=== PATIENT | male | born 1960 | race Hispanic/Latino ===

== ENCOUNTER 2018-04-13 10:15 | Observation (INO) | payer MEDICARE ==
[~2018-04-13] VITALS: Ht 149.9 cm; Wt 72.7 kg
[~2018-04-13 10:15] MED LIST: AEC81 PO; CHOL200013 PO; DOCU-116 PO; NAPR-1023 PO; PRAV20TA4 PO
[2018-04-15 11:20] LABS: BASOPHILS % (AUTO) 0.8 % (0.0-5.0); EOSINOPHILS % (AUTO) 1.2 % (0.0-8.0); HEMATOCRIT 44.2 % (42-54); LYMPHOCYTES % (AUTO) 18.3 % (21.0-51.0); MEAN CORPUSCULAR HEMOGLOBIN 32.1 pg (27.0-33.0); MEAN CORPUSCULAR HGB CONC 33.7 g/dL (32.0-36.0); MEAN CORPUSCULAR VOLUME 95.3 fL (79-99); MONOCYTES % (AUTO) 8.1 % (3.0-13.0); NEUTROPHILS % (AUTO) 71.6 % (40.0-77.0); NUCLEATED RED BLOOD CELLS 0.1 % (0.0-0.19); PLATELET COUNT (AUTO) 224 K/uL (130-400); RED BLOOD CELL COUNT(AUTO) 4.64 MIL/uL (4.50-6.20); RED CELL DISTRIBUTION WIDTH 14.2 % (11.0-15.5); WHITE BLOOD COUNT (AUTO) 8.6 K/uL (4.8-10.8)
[2018-04-15 11:21] VITALS: BP 163/58
[2018-04-15 11:45] LABS: CREATININE 1.1 mg/dL (0.5-1.5); POTASSIUM 5.2 mmol/L (3.5-5.1)
[2018-04-15 11:50] LABS: APPEARANCE,URINE Clear (CLEAR); BILIRUBIN,URINE Negative (NEGATIVE); COLOR,URINE Yellow (YELLOW); GLUCOSE, URINE (UA) Negative (NEGATIVE); KETONES,URINE Negative (NEGATIVE); LEUKOCYTE ESTERASE ,URINE Small (NEGATIVE); NITRATE,URINE Negative (NEGATIVE); OCCULT BLOOD,URINE Negative (NEGATIVE); PROTEIN,URINE Negative (NEGATIVE); UROBILINOGEN,URINE 0.2 mg/dL (0.2-1.0)
[2018-04-15 12:17] LABS: BACTERIA,URINE Rare /HPF (None Seen); SQUAMOUS EPITHELIAL CELL,UR Rare /HPF (0-2)
[2018-04-15 12:18] LABS: MUCUS,URINE Rare LPF (None Seen); RBC,URINE 0-1 /HPF (0-1)
[2018-04-16] MEDS ORDERED: LACHLOT TP (10:01)
[2018-04-16] MEDS ORDERED: LOSA50TA25 PO (10:01)
[2018-04-16] MEDS ORDERED: NIZO215C TP (10:01)
[2018-04-20] VITALS (20 sets, daily range): BP systolic 113–169; BP diastolic 34–82
[2018-04-20] MEDS: CEFTRIAXONE SODIUM 1 GM IVP SCH ×2 (06:00→07:55)
[2018-04-20] MEDS ORDERED: LACTATED RINGERS 1000ML 1,000 ML IV ONE (06:26)
[2018-04-20] MEDS ORDERED: HYDROMORPHONE 1 MG/1 ML AMP ONE (07:17)
[2018-04-20] MEDS ORDERED: SUCCINYLCHOLINE CHLORIDE 20 MG/ML 10 ML VIAL ONE (07:20)
[2018-04-20] MEDS ORDERED: ROCURONIUM BROMIDE 10MG/1ML 5ML VL ONE (07:20)
[2018-04-20] MEDS ORDERED: LIDOCAINE PF 2% 5ML ABBOJECT ONE (07:20)
[2018-04-20] MEDS ORDERED: FENTANYL CITRATE PF 50 MCG/1 ML 2ML VIAL ONE (07:21)
[2018-04-20] MEDS ORDERED: PROPOFOL 10 MG/ML 20ML VIAL IV ONE (07:21)
[2018-04-20] MEDS ORDERED: METOCLOPRAMIDE 10 MG/2 ML VIAL ONE (07:22)
[2018-04-20] MEDS ORDERED: ONDANSETRON HCL 4 MG/2 ML VIAL ONE (07:22)
[2018-04-20] MEDS ORDERED: GLYCOPYRROLATE 1 MG/5 ML SYRINGE ONE (08:03)
[2018-04-20] MEDS ORDERED: EPHEDRINE SULFATE 50 MG/ML AMPULE ONE (08:10)
[2018-04-20] MEDS ORDERED: NEOSTIGMINE 5MG/5ML SYR IV ONE (08:11)
[2018-04-20] MEDS ORDERED: NALOXONE HCL 0.4 MG/1 ML ML ONE (08:17)
== END 2018-04-20 12:15 | disposition home or self-care (01) ==
LOC: DAHIP 04-20 06:00 → EDSTATUS 04-20 10:15
PROVIDERS: ADMIT Surgery; ATTEND Surgery
DX: N40.1 Benign prostatic hyperplasia with lower urinary tract symptoms (principal); I10 Essential (primary) hypertension; N35.819 Other urethral stricture, male, unspecified site; N32.3 Diverticulum of bladder; N32.89 Other specified disorders of bladder; Z87.440 Personal history of urinary (tract) infections
CPT/HCPCS: 36415; 52281; 80048; 81001; 85025; 87088; A4218; A4354; A4358; G0378 ×7; J0330; J0696; J1170; J2001; J2310; J2405; J2704; J2710; J3010; J3490 ×3; J7120; J2765

== ENCOUNTER → 2019-10-15 | Outpatient (CLI) | payer MEDICARE ==
[~2019-10-15] MED LIST changes: -AEC81 PO; +LACHLOT TP; +LOSA50TA64 PO; -NAPR-1023 PO; +NIZO215C TP
== END | disposition home or self-care (01) ==
LOC: SHCH 09:07
PROVIDERS: ATTEND Internal Medicine Cardiovascular Disease
DX: I49.5 Sick sinus syndrome (principal); R55 Syncope and collapse
CPT/HCPCS: 93306

== ENCOUNTER 2020-03-07 12:41 | Emergency (ER) | payer MEDICARE ==
[2020-03-07 13:05] LABS: BASOPHILS % (AUTO) 0.6 % (0.0-5.0); EOSINOPHILS % (AUTO) 0.8 % (0.0-8.0); HEMATOCRIT 43.7 % (42-54); LYMPHOCYTES % (AUTO) 22.4 % (21.0-51.0); MEAN CORPUSCULAR HEMOGLOBIN 31.8 pg (27.0-33.0); MEAN CORPUSCULAR HGB CONC 33.6 g/dL (32.0-36.0); MEAN CORPUSCULAR VOLUME 94.6 fL (79-99); MONOCYTES % (AUTO) 4.7 % (3.0-13.0); NEUTROPHILS % (AUTO) 71.2 % (40.0-77.0); PLATELET COUNT (AUTO) 208 K/uL (130-400); RED BLOOD CELL COUNT(AUTO) 4.62 MIL/uL (4.50-6.20); RED CELL DISTRIBUTION WIDTH 14.2 % (11.0-15.5); WHITE BLOOD COUNT (AUTO) 8.6 K/uL (4.8-10.8)
[2020-03-07 13:20] LABS: INR 0.98 (0.85-1.15); PARTIAL THROMBOPLASTIN TIME 24.2 SEC (26.3-35.5); PROTHROMBIN TIME 10.6 SEC (9.6-11.6)
[2020-03-07 13:25] LABS: ALBUMIN 3.6 g/dL (3.5-5.0); BILIRUBIN,TOTAL 0.6 mg/dL (0.2-1.0); CREATININE 1.2 mg/dL (0.5-1.5); POTASSIUM 4.5 mmol/L (3.5-5.1); TOTAL PROTEIN, SERUM 7.9 g/dL (6.0-8.3)
[2020-03-07 14:17] LABS: APPEARANCE,URINE Clear (CLEAR); BILIRUBIN,URINE Negative (NEGATIVE); COLOR,URINE Yellow (YELLOW); GLUCOSE, URINE (UA) Negative (NEGATIVE); KETONES,URINE Trace mg/dL (NEGATIVE); LEUKOCYTE ESTERASE ,URINE Moderate (NEGATIVE); NITRATE,URINE Negative (NEGATIVE); OCCULT BLOOD,URINE Negative (NEGATIVE); PH,URINE 6.5 (5.0-8.0); PROTEIN,URINE Negative (NEGATIVE); UROBILINOGEN,URINE 0.2 mg/dL (0.2-1.0)
[2020-03-07 14:31] LABS: BACTERIA,URINE Rare /HPF (None Seen); RBC,URINE 0-1 /HPF (0-1); SQUAMOUS EPITHELIAL CELL,UR Rare /HPF (0-2); WBC,URINE 26-50 /HPF (0-1)
[2020-03-07] MEDS ORDERED: SODIUM CHLORIDE 0.9% 100 ML IV ONE (15:48)
[2020-03-07] MEDS ORDERED: CEFTRIAXONE SODIUM 1 GM ONE (15:48)
== END 2020-03-07 16:42 | disposition home or self-care (01) ==
LOC: EDH 12:41
DX: N39.0 Urinary tract infection, site not specified (principal); R55 Syncope and collapse
CPT/HCPCS: 36415; 70450; 71045; 80053; 81001; 82550; 84484; 85025; 85610; 85730; 87088; 93005; 96374; 99285; J0696

== ENCOUNTER 2020-04-19 11:13 | Emergency (ER) | payer MEDICARE ==
[2020-04-19 12:02] LABS: BASOPHILS % (AUTO) 0.6 % (0.0-5.0); EOSINOPHILS % (AUTO) 0.9 % (0.0-8.0); HEMATOCRIT 42.7 % (42-54); LYMPHOCYTES % (AUTO) 11.8 % (21.0-51.0); MEAN CORPUSCULAR HEMOGLOBIN 31.3 pg (27.0-33.0); MEAN CORPUSCULAR VOLUME 94.9 fL (79-99); MONOCYTES % (AUTO) 7.1 % (3.0-13.0); NEUTROPHILS % (AUTO) 79.3 % (40.0-77.0); PLATELET COUNT (AUTO) 184 K/uL (130-400); RED CELL DISTRIBUTION WIDTH 14.6 % (11.0-15.5); WHITE BLOOD COUNT (AUTO) 8.8 K/uL (4.8-10.8)
[2020-04-19 12:24] LABS: CREATININE 1.2 mg/dL (0.5-1.5)
[2020-04-19 12:28] LABS: APPEARANCE,URINE TURBID (CLEAR); BILIRUBIN,URINE NEGATIVE (NEGATIVE); COLOR,URINE YELLOW (YELLOW); GLUCOSE, URINE (UA) NEGATIVE (NEGATIVE); KETONES,URINE NEGATIVE (NEGATIVE); LEUKOCYTE ESTERASE ,URINE LARGE (NEGATIVE); NITRATE,URINE NEGATIVE (NEGATIVE); OCCULT BLOOD,URINE TRACE-INTACT (NEGATIVE); PH,URINE 6.5 (5.0-8.0); PROTEIN,URINE NEGATIVE (NEGATIVE); UROBILINOGEN,URINE 0.2 mg/dL (0.2-1.0)
[2020-04-19 12:29] LABS: ALBUMIN 3.6 g/dL (3.5-5.0); BILIRUBIN,TOTAL 0.3 mg/dL (0.2-1.0); TOTAL PROTEIN, SERUM 7.7 g/dL (6.0-8.3)
[2020-04-19 12:41] LABS: AMORPHOUS SEDIMENT,UR Moderate /LPF (None Seen); BACTERIA,URINE Rare /HPF (None Seen); RBC,URINE 0-1 /HPF (0-1); SQUAMOUS EPITHELIAL CELL,UR Rare /HPF (0-2); WBC,URINE >100 /HPF (0-1)
[2020-04-19] MEDS ORDERED: SODIUM CHLORIDE 0.9% 50 ML IV ONE (13:19)
[2020-04-19] MEDS ORDERED: CEFTRIAXONE SODIUM 1 GM ONE (13:19)
== END 2020-04-19 16:17 | disposition home or self-care (01) ==
LOC: EDH 11:13
DX: N39.0 Urinary tract infection, site not specified (principal); E86.0 Dehydration; R55 Syncope and collapse; Z20.828 Contact with and (suspected) exposure to other viral communicable diseases; I10 Essential (primary) hypertension; E78.5 Hyperlipidemia, unspecified
CPT/HCPCS: 36415; 80053; 81001; 84484; 85025; 87088; 87426; 87804 ×2; 93005; 96374; 99284; J0696; U0003

== ENCOUNTER 2020-12-20 07:38 | Emergency (ER) | payer MEDICARE ==
[~2020-12-20] VITALS: Ht 149.9 cm; Wt 68.0 kg
[2020-12-20 07:59] VITALS: BP 136/56
[2020-12-20 08:31] LABS: BASOPHILS % (AUTO) 0.5 % (0.0-5.0); EOSINOPHILS % (AUTO) 1.4 % (0.0-8.0); LYMPHOCYTES % (AUTO) 12.2 % (21.0-51.0); MEAN CORPUSCULAR HEMOGLOBIN 31.3 pg (27.0-33.0); MEAN CORPUSCULAR HGB CONC 32.8 g/dL (32.0-36.0); MEAN CORPUSCULAR VOLUME 95.5 fL (79-99); MONOCYTES % (AUTO) 6.2 % (3.0-13.0); NEUTROPHILS % (AUTO) 79.4 % (40.0-77.0); PLATELET COUNT (AUTO) 198 K/uL (130-400); RED BLOOD CELL COUNT(AUTO) 4.19 MIL/uL (4.50-6.20); RED CELL DISTRIBUTION WIDTH 14.8 % (11.0-15.5); WHITE BLOOD COUNT (AUTO) 9.3 K/uL (4.8-10.8)
[2020-12-20 08:59] LABS: ALANINE AMINOTRANSFERASE 27 U/L (12-78); ALBUMIN 3.3 g/dL (3.5-5.0); ASPARTATE AMINOTRANSFERASE 22 U/L (10-37); BILIRUBIN,TOTAL 0.5 mg/dL (0.2-1.0); CARBON DIOXIDE 31 mmol/L (21-32); CHLORIDE 105 mmol/L (101-111); CREATINE KINASE, TOTAL 39 U/L (21-232); CREATININE 1.2 mg/dL (0.5-1.5); GLOMERULAR FILTR. RATE CALC 65 mL/min (>60); GLUCOSE,RANDOM 124 mg/dL (70-105); MYOGLOBIN 92 ng/mL (10-92); POTASSIUM 3.8 mmol/L (3.5-5.1); SODIUM SERUM 142 mmol/L (136-145); TOTAL PROTEIN, SERUM 7.2 g/dL (6.0-8.3); TROPONIN I < 0.04 ng/mL (0.00-0.06); UREA NITROGEN, BLOOD 18 mg/dL (7-18)
[2020-12-20 10:01] LABS: APPEARANCE,URINE CLOUDY (CLEAR); BILIRUBIN,URINE NEGATIVE (NEGATIVE); COLOR,URINE YELLOW (YELLOW); GLUCOSE, URINE (UA) NEGATIVE (NEGATIVE); KETONES,URINE NEGATIVE (NEGATIVE); LEUKOCYTE ESTERASE ,URINE MODERATE (NEGATIVE); NITRATE,URINE NEGATIVE (NEGATIVE); OCCULT BLOOD,URINE LARGE (NEGATIVE); PH,URINE 6.5 (5.0-8.0); PROTEIN,URINE 100 mg/dL (NEGATIVE); UROBILINOGEN,URINE 0.2 mg/dL (0.2-1.0)
[2020-12-20 10:24] LABS: RBC,URINE >100 /HPF (0-1)
[2020-12-20 10:25] LABS: BACTERIA,URINE Rare /HPF (None Seen); SQUAMOUS EPITHELIAL CELL,UR Rare /HPF (0-2); WBC,URINE 51-100 /HPF (0-1)
[2020-12-20 12:06] VITALS: BP 176/86
[2020-12-20] MEDS ORDERED: CEFTRIAXONE 1G VIAL IVP SCH (12:15)
[2020-12-20] MEDS ORDERED: 0.9% NACL 50ML 50 ML IV ONE (12:29)
[2020-12-20] MEDS ORDERED: CEPH500B PO (13:06)
[2020-12-20 13:19] VITALS: BP 120/65
== END 2020-12-20 13:42 | disposition home or self-care (01) ==
LOC: EDH 07:38
DX: N39.0 Urinary tract infection, site not specified (principal); R55 Syncope and collapse; I10 Essential (primary) hypertension; Z79.899 Other long term (current) drug therapy
CPT/HCPCS: 36415; 74018; 80053; 81001; 82550; 83874; 84484; 85025; 87088; 93005; 96374; 99285; J0696

== ENCOUNTER 2022-01-22 16:42 | Inpatient (IN) | payer MEDICARE ==
[~2022-01-22] VITALS: Ht 160 cm; Wt 69.4 kg
[~2022-01-22 16:42] MED LIST changes: +AEC81 PO; +AMOX-429 PO; +CEPH500B PO; +CICL34.62 TP; +FINA5TAB41 PO; +FLUD0.1T2 PO; +LORA10TA7 PO; -LOSA50TA64 PO; +NYST100P2 MC; +POLY17PO52 PO; +PROP40TA7 PO; +TAMS-1 PO; +TRIA1KIT8 TP
[2022-01-22 18:15] LABS: BASOPHILS % (AUTO) 0.3 % (0.0-5.0); HEMATOCRIT 30.8 % (42-54); LYMPHOCYTES % (AUTO) 16.4 % (21.0-51.0); MEAN CORPUSCULAR HEMOGLOBIN 31.3 pg (27.0-33.0); MEAN CORPUSCULAR HGB CONC 33.4 g/dL (32.0-36.0); MEAN CORPUSCULAR VOLUME 93.6 fL (79-99); MONOCYTES % (AUTO) 10.8 % (3.0-13.0); NEUTROPHILS % (AUTO) 69.5 % (40.0-77.0); PLATELET COUNT (AUTO) 170 K/uL (130-400); RED BLOOD CELL COUNT(AUTO) 3.29 MIL/uL (4.50-6.20); RED CELL DISTRIBUTION WIDTH 14.5 % (11.0-15.5); WHITE BLOOD COUNT (AUTO) 9.5 K/uL (4.8-10.8)
[2022-01-22 18:26] LABS: POTASSIUM 3.5 mmol/L (3.5-5.1)
[2022-01-22 18:31] LABS: ALBUMIN 2.2 g/dL (3.5-5.0); TOTAL PROTEIN, SERUM 5.9 g/dL (6.0-8.3)
[2022-01-22] MEDS ORDERED: DOXY100C5 PO (18:46)
[2022-01-22] MEDS: ALBUTEROL INHALER 90MCG/INH IH SCH (19:00)
[2022-01-22] MEDS ORDERED: ONDANSETRON 4MG INJ IV PRN (19:00)
[2022-01-22] MEDS ORDERED: MORPHINE 2 MG SYG IV PRN (19:00)
[2022-01-22] MEDS ORDERED: ASPIRIN 81MG CHEW TAB PO ONE (19:00)
[2022-01-22] MEDS ORDERED: ACETAMINOPHEN 325 MG TAB PO PRN (19:00)
[2022-01-22] MEDS ORDERED: GUAIFENESIN-DM 200/20 MG 10 ML PO PRN (19:00)
[2022-01-22] MEDS ORDERED: MORPHINE 4 MG SYG IV PRN (19:00)
[2022-01-22] MEDS ORDERED: ERGOCALCIFEROL (VITAMIN D2) 50,000 UNIT CAPSULE PO ONE (19:00)
[2022-01-22] MEDS: DEXAMETHASONE SOD PHOSPHATE 4 MG/ML 1ML VIAL IV SCH (20:00)
[2022-01-22] MEDS: CEFTRIAXONE 1G VIAL IV SCH (20:00)
[2022-01-22] MEDS: DOXYCYCLINE 100MG+NS 250ML 250 ML IV SCH (20:00)
[2022-01-22] MEDS: NITROGLYCERIN 1GM OINT 1 INCH/1GM TD SCH (20:02)
[2022-01-22] MEDS ORDERED: KETO15CR2 TP (20:15)
[2022-01-22] MEDS ORDERED: VITAMIN D3 PO (20:15)
[2022-01-22] MEDS ORDERED: CICL34.62 TP (20:15)
[2022-01-22] MEDS ORDERED: PRAV20TA4 PO (20:15)
[2022-01-22] MEDS ORDERED: TAMS-1 PO (20:15)
[2022-01-22] MEDS ORDERED: AEC81 PO (20:15)
[2022-01-22] MEDS ORDERED: POLY17PO52 PO (20:15)
[2022-01-22] MEDS ORDERED: LORA10TA7 PO (20:15)
[2022-01-22] MEDS ORDERED: LACHLOT TP (20:15)
[2022-01-22] MEDS ORDERED: FLUD0.1T2 PO (20:15)
[2022-01-22] MEDS ORDERED: PROP60CA PO (20:15)
[2022-01-22] MEDS ORDERED: FINA5TAB41 PO (20:15)
[2022-01-22] MEDS ORDERED: TRIA15CR48 TP (20:15)
[2022-01-22] MEDS ORDERED: DOCU-116 PO (20:15)
[2022-01-22] MEDS: FAMOTIDINE 20MG VIAL IV SCH (21:32)
[2022-01-23] MEDS: ALBUTEROL INHALER 90MCG/INH IH SCH ×4 (01:00→19:00)
[2022-01-23] MEDS: TRAZODONE HCL 50 MG TAB PO SCH ×2 (01:09→22:10)
[2022-01-23] MEDS ORDERED: HYDROXYZINE 25 MG TABLET PO ONE (01:30)
[2022-01-23] MEDS: NITROGLYCERIN 1GM OINT 1 INCH/1GM TD SCH ×3 (02:52→19:00)
[2022-01-23 04:07] LABS: APPEARANCE,URINE CLEAR (CLEAR); BILIRUBIN,URINE NEGATIVE (NEGATIVE); COLOR,URINE YELLOW (YELLOW); GLUCOSE, URINE (UA) NEGATIVE (NEGATIVE); KETONES,URINE NEGATIVE (NEGATIVE); LEUKOCYTE ESTERASE ,URINE MODERATE (NEGATIVE); NITRATE,URINE NEGATIVE (NEGATIVE); OCCULT BLOOD,URINE LARGE (NEGATIVE); PH,URINE 5.5 (5.0-8.0); PROTEIN,URINE 30 mg/dL (NEGATIVE); UROBILINOGEN,URINE 0.2 mg/dL (0.2-1.0)
[2022-01-23 04:14] LABS: BACTERIA,URINE Moderate /HPF (None Seen); MUCUS,URINE Moderate LPF (None Seen); RBC,URINE TNTC /HPF (0-1); SQUAMOUS EPITHELIAL CELL,UR Few /HPF (0-2); WBC,URINE TNTC /HPF (0-1)
[2022-01-23 04:39] LABS: CREATININE 0.9 mg/dL (0.5-1.5); POTASSIUM 3.6 mmol/L (3.5-5.1)
[2022-01-23 04:47] LABS: MAGNESIUM 1.8 mg/dL (1.80-2.40)
[2022-01-23 05:58] LABS: BASOPHILS % (AUTO) 0.3 % (0.0-5.0); HEMATOCRIT 31.6 % (42-54); LYMPHOCYTES % (AUTO) 9.8 % (21.0-51.0); MEAN CORPUSCULAR HEMOGLOBIN 31.6 pg (27.0-33.0); MEAN CORPUSCULAR HGB CONC 33.9 g/dL (32.0-36.0); MEAN CORPUSCULAR VOLUME 93.2 fL (79-99); MONOCYTES % (AUTO) 1.5 % (3.0-13.0); NEUTROPHILS % (AUTO) 86.5 % (40.0-77.0); PLATELET COUNT (AUTO) 194 K/uL (130-400); RED BLOOD CELL COUNT(AUTO) 3.39 MIL/uL (4.50-6.20); RED CELL DISTRIBUTION WIDTH 14.2 % (11.0-15.5); WHITE BLOOD COUNT (AUTO) 7.9 K/uL (4.8-10.8)
[2022-01-23] MEDS: FAMOTIDINE 20MG VIAL IV SCH ×2 (08:16→20:25)
[2022-01-23] MEDS: DOXYCYCLINE 100MG+NS 250ML 250 ML IV SCH ×2 (08:16→20:24)
[2022-01-23] MEDS ORDERED: ASPIRIN 81MG CHEW TAB PO SCH (09:00)
[2022-01-23] MEDS: FLUDROCORTISONE ACETATE 0.1 MG TABLET PO SCH (09:34)
[2022-01-23] MEDS: ZINC SULFATE 220 CAPSULE PO SCH (09:34)
[2022-01-23] MEDS: AMMONIUM LACTATE 226GM LOTION TP SCH (09:34)
[2022-01-23] MEDS: FINASTERIDE 5 MG TABLET PO SCH (09:34)
[2022-01-23] MEDS: DOCUSATE SODIUM 100 MG CAP PO SCH ×2 (09:34→22:10)
[2022-01-23] MEDS: KETOCONAZOLE 15 GM CREAM.GM. TP SCH ×2 (09:34→21:00)
[2022-01-23] MEDS: POLYETHYLENE GLYCOL 3350 17 GM POWD.PACK PO SCH (09:34)
[2022-01-23] MEDS: ASPIRIN 81 MG EC TAB PO SCH (09:34)
[2022-01-23] MEDS: ASCORBIC ACID 500 MG TAB PO SCH (09:34)
[2022-01-23] MEDS: VITAMIN D3 2000 UNIT PO SCH (09:34)
[2022-01-23] MEDS: LORATADINE 10 MG TABLET PO SCH (09:34)
[2022-01-23] MEDS: TAMSULOSIN HCL 0.4 MG CAP.ER.24H PO SCH (09:34)
[2022-01-23] MEDS: [UNRECOGNIZED DRUG - OTHER] TP SCH (09:34)
[2022-01-23] MEDS: TRIAMCINOLONE 0.025% 15 GM CREAM TP SCH (09:35)
[2022-01-23] MEDS: ENOXAPARIN SODIUM 40 MG/0.4 ML SYRINGE SQ SCH (09:35)
[2022-01-23] MEDS: PROPRANOLOL HCL 20 MG TAB PO SCH (10:15)
[2022-01-23] MEDS: DEXAMETHASONE SOD PHOSPHATE 4 MG/ML 1ML VIAL IV SCH (20:24)
[2022-01-23] MEDS: CEFTRIAXONE 1G VIAL IV SCH (20:24)
[2022-01-23] MEDS ORDERED: SIMVASTATIN 20 MG TABLET PO SCH (21:00)
[2022-01-24] MEDS: ALBUTEROL INHALER 90MCG/INH IH SCH ×2 (01:00→06:54)
[2022-01-24] MEDS ORDERED: HYDROXYZINE 25 MG TABLET PO ONE (02:30)
[2022-01-24] MEDS: NITROGLYCERIN 1GM OINT 1 INCH/1GM TD SCH (02:42)
[2022-01-24 04:33] LABS: BASOPHILS % (AUTO) 0.2 % (0.0-5.0); HEMATOCRIT 34.2 % (42-54); MEAN CORPUSCULAR HGB CONC 33.9 g/dL (32.0-36.0); MEAN CORPUSCULAR VOLUME 94.2 fL (79-99); MONOCYTES % (AUTO) 1.6 % (3.0-13.0); NEUTROPHILS % (AUTO) 88.3 % (40.0-77.0); PLATELET COUNT (AUTO) 226 K/uL (130-400); RED BLOOD CELL COUNT(AUTO) 3.63 MIL/uL (4.50-6.20); RED CELL DISTRIBUTION WIDTH 14.4 % (11.0-15.5); WHITE BLOOD COUNT (AUTO) 11.4 K/uL (4.8-10.8)
[2022-01-24 05:02] LABS: % IRON SATURATION 33.6 % (30-44)
[2022-01-24 05:03] LABS: CREATININE 1.1 mg/dL (0.5-1.5); MAGNESIUM 1.8 mg/dL (1.80-2.40); PHOSPHORUS 3.3 mg/dL (2.5-4.9); POTASSIUM 3.9 mmol/L (3.5-5.1); THYROID STIMULATING HORMONE 0.86 uIU/mL (0.36-3.74)
[2022-01-24] MEDS: DOXYCYCLINE 100MG+NS 250ML 250 ML IV SCH (08:02)
[2022-01-24] MEDS ORDERED: DEXA6TAB PO (08:13)
[2022-01-24] MEDS ORDERED: GUAI5SYR PO (08:13)
[2022-01-24] MEDS ORDERED: CEFU500T67 PO (08:13)
[2022-01-24] MEDS: FAMOTIDINE 20MG VIAL IV SCH (08:47)
[2022-01-24] MEDS: FLUDROCORTISONE ACETATE 0.1 MG TABLET PO SCH (08:47)
[2022-01-24] MEDS: DOCUSATE SODIUM 100 MG CAP PO SCH (08:47)
[2022-01-24] MEDS: ASPIRIN 81 MG EC TAB PO SCH (08:47)
[2022-01-24] MEDS: TAMSULOSIN HCL 0.4 MG CAP.ER.24H PO SCH (08:47)
[2022-01-24] MEDS: FINASTERIDE 5 MG TABLET PO SCH (08:48)
[2022-01-24] MEDS: PROPRANOLOL HCL 20 MG TAB PO SCH (08:48)
[2022-01-24] MEDS: ASCORBIC ACID 500 MG TAB PO SCH (08:48)
[2022-01-24] MEDS: ZINC SULFATE 220 CAPSULE PO SCH (08:48)
[2022-01-24] MEDS: POLYETHYLENE GLYCOL 3350 17 GM POWD.PACK PO SCH (08:48)
[2022-01-24] MEDS: LORATADINE 10 MG TABLET PO SCH (08:48)
[2022-01-24] MEDS: AMMONIUM LACTATE 226GM LOTION TP SCH (08:50)
[2022-01-24] MEDS: TRIAMCINOLONE 0.025% 15 GM CREAM TP SCH (08:50)
[2022-01-24] MEDS: [UNRECOGNIZED DRUG - OTHER] TP SCH (08:52)
[2022-01-24] MEDS: VITAMIN D3 2000 UNIT PO SCH (08:52)
[2022-01-24] MEDS: ENOXAPARIN SODIUM 40 MG/0.4 ML SYRINGE SQ SCH (08:53)
[2022-01-24 09:51] VITALS: BP 147/89
== END 2022-01-24 09:48 | disposition home or self-care (01) | DRG 177 ==
LOC: EDH 16:42 → EDHIP 18:59
PROVIDERS: ADMIT Internal Medicine; ATTEND Internal Medicine
DX: U07.1 COVID-19 (principal); J12.82 Pneumonia due to coronavirus disease 2019; E44.0 Moderate protein-calorie malnutrition; N39.0 Urinary tract infection, site not specified; Z82.49 Family history of ischemic heart disease and other diseases of the circulatory system; I10 Essential (primary) hypertension; E78.5 Hyperlipidemia, unspecified; N40.0 Benign prostatic hyperplasia without lower urinary tract symptoms; Z79.899 Other long term (current) drug therapy; E78.00 Pure hypercholesterolemia, unspecified; K59.00 Constipation, unspecified; Z68.27 Body mass index [BMI] 27.0-27.9, adult; R77.8 Other specified abnormalities of plasma proteins; Q90.9 Down syndrome, unspecified
CPT/HCPCS: 36415; 71045; 80048; 80053; 81001; 82550; 82728; 82746; 83540; 83550; 83735; 83874; 84100; 84145; 84443; 84484; 85025; 85045; 87088; 87635; 93005; G0378; J0696; J1100; J1650; J3490

== ENCOUNTER 2022-01-25 08:43 | Inpatient (IN) | payer MEDICARE ==
[~2022-01-25] VITALS: Ht 149.9 cm; Wt 56.1 kg
[~2022-01-25 08:43] MED LIST changes: -AMOX-429 PO; +CEFU500T67 PO; -CEPH500B PO; -CHOL200013 PO; +DEXA6TAB PO; +DOXY100C5 PO; +GUAI5SYR PO; +KETO15CR2 TP; -NIZO215C TP; -NYST100P2 MC; -PROP40TA7 PO; +PROP60CA PO; +TRIA15CR48 TP; -TRIA1KIT8 TP; +VITAMIN D3 PO
[2022-01-25 09:51] LABS: BASOPHILS % (AUTO) 0.3 % (0.0-5.0); EOSINOPHILS % (AUTO) 0.7 % (0.0-8.0); HEMATOCRIT 33.1 % (42-54); MEAN CORPUSCULAR HEMOGLOBIN 31.6 pg (27.0-33.0); MEAN CORPUSCULAR HGB CONC 33.5 g/dL (32.0-36.0); MEAN CORPUSCULAR VOLUME 94.3 fL (79-99); MONOCYTES % (AUTO) 5.1 % (3.0-13.0); NEUTROPHILS % (AUTO) 85.4 % (40.0-77.0); PLATELET COUNT (AUTO) 226 K/uL (130-400); RED BLOOD CELL COUNT(AUTO) 3.51 MIL/uL (4.50-6.20); RED CELL DISTRIBUTION WIDTH 14.6 % (11.0-15.5); WHITE BLOOD COUNT (AUTO) 11.6 K/uL (4.8-10.8)
[2022-01-25 10:08] LABS: ALBUMIN 2.4 g/dL (3.5-5.0); CREATININE 1.1 mg/dL (0.5-1.5); POTASSIUM 3.5 mmol/L (3.5-5.1); TOTAL PROTEIN, SERUM 6.1 g/dL (6.0-8.3)
[2022-01-25 10:40] LABS: B-TYPE NATRIURETIC PEPTIDE 959 pg/mL (0-100)
[2022-01-25] MEDS ORDERED: FUROSEMIDE 40MG VIAL IV ONE (12:30)
[2022-01-25] MEDS ORDERED: ACETAMINOPHEN 325 MG TAB PO PRN ×2 (12:30)
[2022-01-25] MEDS ORDERED: ONDANSETRON 4MG INJ IV PRN (12:30)
[2022-01-25] MEDS ORDERED: FUROSEMIDE 20MG VIAL IV ONE (12:30)
[2022-01-25 16:40] VITALS: BP 149/56
[2022-01-25 20:00] VITALS: BP 164/72
[2022-01-25] MEDS: FUROSEMIDE 40MG VIAL IVP SCH (20:32)
[2022-01-25] MEDS: FAMOTIDINE 20MG TAB PO SCH (20:33)
[2022-01-25 23:58] VITALS: BP 136/65
[2022-01-26 04:00] VITALS: BP 128/59
[2022-01-26 08:00] VITALS: BP 129/59
[2022-01-26] MEDS: ENOXAPARIN SODIUM 40 MG/0.4 ML SYRINGE SQ SCH (08:46)
[2022-01-26] MEDS: FAMOTIDINE 20MG TAB PO SCH ×2 (08:48→21:45)
[2022-01-26] MEDS: FUROSEMIDE 40MG VIAL IVP SCH ×2 (08:48→21:46)
[2022-01-26 12:00] VITALS: BP 105/51
[2022-01-26] MEDS ORDERED: 0.9% NACL 250ML 250 ML ONE (15:45)
[2022-01-26] MEDS: DOXYCYCLINE 100MG+NS 250ML IV SCH (15:48)
[2022-01-26 16:00] VITALS: BP 131/57
[2022-01-26 20:00] VITALS: BP 110/55
[2022-01-26] MEDS: DOCUSATE SODIUM 100 MG CAP PO SCH (21:45)
[2022-01-26] MEDS: KETOCONAZOLE 15 GM CREAM.GM. TP SCH (21:46)
[2022-01-27] VITALS: BP 122/59
[2022-01-27] MEDS: DOXYCYCLINE 100MG+NS 250ML IV SCH ×2 (01:10→13:53)
[2022-01-27 04:00] VITALS: BP 139/63
[2022-01-27 04:45] LABS: BASOPHILS % (AUTO) 0.3 % (0.0-5.0); EOSINOPHILS % (AUTO) 0.9 % (0.0-8.0); HEMATOCRIT 32.7 % (42-54); LYMPHOCYTES % (AUTO) 26.7 % (21.0-51.0); MEAN CORPUSCULAR HEMOGLOBIN 31.6 pg (27.0-33.0); MEAN CORPUSCULAR HGB CONC 33.9 g/dL (32.0-36.0); MEAN CORPUSCULAR VOLUME 93.2 fL (79-99); MONOCYTES % (AUTO) 7.1 % (3.0-13.0); NEUTROPHILS % (AUTO) 63.1 % (40.0-77.0); PLATELET COUNT (AUTO) 250 K/uL (130-400); RED BLOOD CELL COUNT(AUTO) 3.51 MIL/uL (4.50-6.20); RED CELL DISTRIBUTION WIDTH 14.5 % (11.0-15.5); WHITE BLOOD COUNT (AUTO) 9.6 K/uL (4.8-10.8)
[2022-01-27 05:00] LABS: ALBUMIN 2.6 g/dL (3.5-5.0); CREATININE 0.9 mg/dL (0.5-1.5); POTASSIUM 3.1 mmol/L (3.5-5.1); TOTAL PROTEIN, SERUM 6.4 g/dL (6.0-8.3)
[2022-01-27] MEDS ORDERED: POTASSIUM CHLORIDE 20MEQ/100ML 100 ML IV PRN (07:00)
[2022-01-27] MEDS ORDERED: KCL 20 MEQ ERTAB PO PRN (07:00)
[2022-01-27] MEDS ORDERED: LIDOCAINE HCL-MPF 1% 2ML VIAL IV PRN (07:00)
[2022-01-27 08:00] VITALS: BP 111/51
[2022-01-27] MEDS: PROPRANOLOL HCL 60 MG PO SCH (09:00)
[2022-01-27] MEDS: VITAMIN D3 2000 UNIT PO SCH (09:00)
[2022-01-27] MEDS: [UNRECOGNIZED DRUG - OTHER] TP SCH (09:00)
[2022-01-27] MEDS: ENOXAPARIN SODIUM 40 MG/0.4 ML SYRINGE SQ SCH (10:15)
[2022-01-27] MEDS: FUROSEMIDE 40MG VIAL IVP SCH ×2 (10:15→20:30)
[2022-01-27] MEDS: FLUDROCORTISONE ACETATE 0.1 MG TABLET PO SCH (10:16)
[2022-01-27] MEDS: ASPIRIN 81 MG EC TAB PO SCH (10:16)
[2022-01-27] MEDS: ATORVASTATIN 10 MG TABLET PO SCH (10:16)
[2022-01-27] MEDS: TAMSULOSIN HCL 0.4 MG CAP.ER.24H PO SCH (10:16)
[2022-01-27] MEDS: FINASTERIDE 5 MG TABLET PO SCH (10:16)
[2022-01-27] MEDS: DOCUSATE SODIUM 100 MG CAP PO SCH ×2 (10:16→20:40)
[2022-01-27] MEDS: POLYETHYLENE GLYCOL 3350 17 GM POWD.PACK PO SCH (10:16)
[2022-01-27] MEDS: LORATADINE 10 MG TABLET PO SCH (10:16)
[2022-01-27] MEDS: FAMOTIDINE 20MG TAB PO SCH ×2 (10:16→20:40)
[2022-01-27] MEDS: TRIAMCINOLONE ACETONIDE 0.1% CREAM 15GM TP SCH (10:16)
[2022-01-27] MEDS: POTASSIUM CHLORIDE 10% ELIXIR 20 MEQ/15 ML UDCUP PO PRN ×3 (10:18→16:44)
[2022-01-27] MEDS: KETOCONAZOLE 15 GM CREAM.GM. TP SCH ×2 (10:23→21:00)
[2022-01-27 12:00] VITALS: BP 89/51
[2022-01-27 16:00] VITALS: BP 115/53
[2022-01-27 20:00] VITALS: BP 97/47
[2022-01-28] VITALS: BP 104/51
[2022-01-28] MEDS ORDERED: 0.9% NACL 250ML 250 ML ONE (02:25)
[2022-01-28] MEDS: DOXYCYCLINE 100MG+NS 250ML IV SCH ×2 (02:27→13:00)
[2022-01-28 04:00] VITALS: BP 126/55
[2022-01-28 04:20] LABS: BASOPHILS % (AUTO) 0.4 % (0.0-5.0); EOSINOPHILS % (AUTO) 1.7 % (0.0-8.0); HEMATOCRIT 34.5 % (42-54); LYMPHOCYTES % (AUTO) 23.7 % (21.0-51.0); MEAN CORPUSCULAR HEMOGLOBIN 31.3 pg (27.0-33.0); MEAN CORPUSCULAR HGB CONC 32.8 g/dL (32.0-36.0); MEAN CORPUSCULAR VOLUME 95.6 fL (79-99); MONOCYTES % (AUTO) 6.6 % (3.0-13.0); NEUTROPHILS % (AUTO) 66.3 % (40.0-77.0); PLATELET COUNT (AUTO) 267 K/uL (130-400); RED BLOOD CELL COUNT(AUTO) 3.61 MIL/uL (4.50-6.20); RED CELL DISTRIBUTION WIDTH 15.2 % (11.0-15.5); WHITE BLOOD COUNT (AUTO) 10.1 K/uL (4.8-10.8)
[2022-01-28 04:42] LABS: ALBUMIN 2.6 g/dL (3.5-5.0); POTASSIUM 3.8 mmol/L (3.5-5.1); TOTAL PROTEIN, SERUM 6.4 g/dL (6.0-8.3)
[2022-01-28 07:05] VITALS: BP 121/60
[2022-01-28] MEDS: TRIAMCINOLONE ACETONIDE 0.1% CREAM 15GM TP SCH (09:00)
[2022-01-28] MEDS: KETOCONAZOLE 15 GM CREAM.GM. TP SCH (09:00)
[2022-01-28] MEDS: PROPRANOLOL HCL 60 MG PO SCH (09:00)
[2022-01-28] MEDS: [UNRECOGNIZED DRUG - OTHER] TP SCH (09:00)
[2022-01-28] MEDS: FLUDROCORTISONE ACETATE 0.1 MG TABLET PO SCH (09:00)
[2022-01-28] MEDS: VITAMIN D3 2000 UNIT PO SCH (09:00)
[2022-01-28] MEDS: FINASTERIDE 5 MG TABLET PO SCH (09:51)
[2022-01-28] MEDS: ASPIRIN 81 MG EC TAB PO SCH (09:51)
[2022-01-28] MEDS: DOCUSATE SODIUM 100 MG CAP PO SCH (09:51)
[2022-01-28] MEDS: FAMOTIDINE 20MG TAB PO SCH (09:51)
[2022-01-28] MEDS: ATORVASTATIN 10 MG TABLET PO SCH (09:51)
[2022-01-28] MEDS: ENOXAPARIN SODIUM 40 MG/0.4 ML SYRINGE SQ SCH (09:52)
[2022-01-28] MEDS: FUROSEMIDE 40MG VIAL IVP SCH (09:52)
[2022-01-28] MEDS: TAMSULOSIN HCL 0.4 MG CAP.ER.24H PO SCH (09:55)
[2022-01-28] MEDS: LORATADINE 10 MG TABLET PO SCH (09:55)
[2022-01-28] MEDS: POLYETHYLENE GLYCOL 3350 17 GM POWD.PACK PO SCH (09:55)
[2022-01-28 11:10] VITALS: BP 113/51
[2022-01-28] MEDS ORDERED: POTA-79 PO (11:47)
[2022-01-28] MEDS ORDERED: FURO40TA7 PO (11:47)
[2022-01-28 15:05] VITALS: BP 114/53
== END 2022-01-28 16:12 | disposition home or self-care (01) | DRG 177 ==
LOC: EDH 08:43 → EDHIP 12:18 → 4CH 16:33 → 3CH 01-27 17:42 → 4CH 01-27 17:47
PROVIDERS: ADMIT Hospitalist; ATTEND Hospitalist
DX: U07.1 COVID-19 (principal); I50.31 Acute diastolic (congestive) heart failure; J96.01 Acute respiratory failure with hypoxia; J12.82 Pneumonia due to coronavirus disease 2019; I11.0 Hypertensive heart disease with heart failure; E87.6 Hypokalemia; E78.00 Pure hypercholesterolemia, unspecified; Z79.899 Other long term (current) drug therapy; Q90.9 Down syndrome, unspecified
CPT/HCPCS: 36415; 71045; 80053; 83880; 84145; 84484; 85025; 87635; 93306; 93356; 94760; A4606; G0378; J1650; J1940; J3490; J7050

== ENCOUNTER → 2022-02-06 | Outpatient (CLI) | payer MEDICARE ==
[~2022-02-06] MED LIST changes: -CEFU500T67 PO; -DEXA6TAB PO; +FURO40TA7 PO; -GUAI5SYR PO; +POTA-79 PO
== END | disposition home or self-care (01) ==
LOC: SHCH 11:19
PROVIDERS: ATTEND Internal Medicine Cardiovascular Disease
DX: R01.1 Cardiac murmur, unspecified (principal)
CPT/HCPCS: 93306

== ENCOUNTER 2023-01-10 08:19 | Day surgery (SDC) | payer MEDICARE ==
[2023-01-08 11:25] LABS: BASOPHILS % (AUTO) 0.8 % (0.0-5.0); EOSINOPHILS % (AUTO) 1.6 % (0.0-8.0); HEMATOCRIT 39.6 % (42-54); LYMPHOCYTES % (AUTO) 26.5 % (21.0-51.0); MEAN CORPUSCULAR HEMOGLOBIN 31.2 pg (27.0-33.0); MEAN CORPUSCULAR HGB CONC 31.8 g/dL (32.0-36.0); MONOCYTES % (AUTO) 6.9 % (3.0-13.0); NEUTROPHILS % (AUTO) 63.9 % (40.0-77.0); PLATELET COUNT (AUTO) 234 K/uL (130-400); RED BLOOD CELL COUNT(AUTO) 4.04 MIL/uL (4.50-6.20); RED CELL DISTRIBUTION WIDTH 14.6 % (11.0-15.5); WHITE BLOOD COUNT (AUTO) 7.7 K/uL (4.8-10.8)
[2023-01-08 11:33] LABS: POTASSIUM 4.3 mmol/L (3.5-5.1)
[2023-01-08 11:53] VITALS: BP 118/71
[~2023-01-10] VITALS: Ht 144.8 cm; Wt 59.2 kg
[~2023-01-10 08:19] MED LIST changes: -DOXY100C5 PO; +FURO20TA4 PO; -FURO40TA7 PO; +POTA-364 PO; -POTA-79 PO; +nystatin TP
[2023-01-10 09:15] VITALS: BP 144/50
[2023-01-10] MEDS ORDERED: LACTATED RINGERS 1000ML 1,000 ML IV ONE (09:38)
[2023-01-10] MEDS ORDERED: MEROPENEM 1 GM VIAL ONE (10:18)
[2023-01-10] MEDS ORDERED: ERTAPENEM SODIUM 1 GM/VIAL IV SCH (11:00)
[2023-01-10] MEDS ORDERED: ONDANSETRON 4MG INJ ONE (11:35)
[2023-01-10] MEDS ORDERED: LIDOCAINE PF 100MG/5ML (2%) SYRINGE 5ML ONE (11:35)
[2023-01-10] MEDS ORDERED: DEXAMETHASONE SOD PHOSPHATE 10MG/ML 1ML VIAL ONE (11:35)
[2023-01-10] MEDS ORDERED: GLYCOPYRROLATE 1 MG/5 ML SYRINGE ONE (11:35)
[2023-01-10] MEDS ORDERED: MIDAZOLAM HCL 1 MG/ML 2ML VIAL ONE (11:35)
[2023-01-10] MEDS ORDERED: SUCCINYLCHOLINE 200MG/10ML SYR ONE (11:35)
[2023-01-10] MEDS ORDERED: ROCURONIUM 10MG/1ML SYR 10 MG/ML ML ONE ×2 (11:36→12:29)
[2023-01-10] MEDS ORDERED: NEOSTIGMINE 5MG/5ML SYR IV ONE (11:36)
[2023-01-10] MEDS ORDERED: PROPOFOL 10 MG/ML 20ML VIAL IV ONE (11:36)
[2023-01-10] MEDS ORDERED: FENTANYL CITRATE PF 50 MCG/1 ML 2ML VIAL ONE (11:36)
[2023-01-10] MEDS ORDERED: KETAMINE 50MG/ML SYRINGE 50 MG/ML DISP.SYRIN ONE (11:39)
[2023-01-10] MEDS ORDERED: MEROPENEM 1 GM VIAL IVPB ONE (11:40)
[2023-01-10] MEDS ORDERED: PHENAZOPYRIDINE HCL 200 MG TABLET ONE (14:00)
[2023-01-10 14:05] VITALS: BP 134/66
[2023-01-10 14:15] VITALS: BP 119/60
[2023-01-10 14:25] VITALS: BP 128/62
[2023-01-10 14:35] VITALS: BP 132/64
== END 2023-01-10 14:45 | disposition home or self-care (01) ==
LOC: DAH 08:19
PROVIDERS: ATTEND Urology
DX: N40.1 Benign prostatic hyperplasia with lower urinary tract symptoms (principal); Z20.822 Contact with and (suspected) exposure to COVID-19; N35.919 Unspecified urethral stricture, male, unspecified site; N32.0 Bladder-neck obstruction; N30.20 Other chronic cystitis without hematuria; R33.8 Other retention of urine; R39.14 Feeling of incomplete bladder emptying; Q90.9 Down syndrome, unspecified; B96.29 Other Escherichia coli [E. coli] as the cause of diseases classified elsewhere; Z79.82 Long term (current) use of aspirin; Z98.890 Other specified postprocedural states; Z79.899 Other long term (current) drug therapy
CPT/HCPCS: 80048; 85025; 87426; 36415; 52281; A4663; J7030; J7120 ×2; A4314; A4344; A4354; J3010; J0330; J3490 ×2; J1100; J2710; J2001; J2250; J2704; J2405; J2185 ×2; A4358; C1769; A4215; A4223; A4222; A4221; A4600; A4510; J1335

== ENCOUNTER 2023-01-24 07:32 | Day surgery (SDC) | payer MEDICARE ==
[2023-01-22 13:31] LABS: BASOPHILS # (AUTO) 0.06 K/uL (0.00-0.20); BASOPHILS % (AUTO) 0.5 % (0.0-5.0); EOSINOPHILS # (AUTO) 0.13 K/uL (0.00-0.70); HEMATOCRIT 37.5 % (42-54); IMMATURE GRANULOCYTE ABSOLUTE 0.06 K/uL (0-1); LYMPHOCYTES # (AUTO) 1.9 K/uL (1.0-4.8); LYMPHOCYTES % (AUTO) 14.1 % (21.0-51.0); MEAN CORPUSCULAR HEMOGLOBIN 30.9 pg (27.0-33.0); MEAN CORPUSCULAR VOLUME 96.6 fL (79-99); MONOCYTES # (AUTO) 0.7 K/uL (0.1-1.0); MONOCYTES % (AUTO) 5.4 % (3.0-13.0); NEUTROPHILS # (AUTO) 10.4 K/uL (1.8-7.7); NEUTROPHILS % (AUTO) 78.5 % (40.0-77.0); PLATELET COUNT (AUTO) 322 K/uL (130-400); RED BLOOD CELL COUNT(AUTO) 3.88 MIL/uL (4.50-6.20); RED CELL DISTRIBUTION WIDTH 14.2 % (11.0-15.5); WHITE BLOOD COUNT (AUTO) 13.2 K/uL (4.8-10.8)
[2023-01-22 13:35] VITALS: BP 136/75; PULSE 67; RESP 16
[2023-01-24] VITALS (20 sets, daily range): BP systolic 113–162; BP diastolic 46–116; PULSE 45–53; RESP 10–16
[~2023-01-24] VITALS: Ht 152.4 cm; Wt 59.1 kg
[~2023-01-24 07:32] MED LIST changes: +FLUO10CA21 PO
[2023-01-24] MEDS ORDERED: MEROPENEM 500 MG VIAL ONE (07:37)
[2023-01-24] MEDS ORDERED: LACTATED RINGERS 1000ML 1,000 ML IV ONE (07:38)
[2023-01-24] MEDS ORDERED: SUCCINYLCHOLINE 200MG/10ML SYR ONE (10:55)
[2023-01-24] MEDS ORDERED: DEXAMETHASONE SOD PHOSPHATE 10MG/ML 1ML VIAL ONE (10:55)
[2023-01-24] MEDS ORDERED: LIDOCAINE PF 100MG/5ML (2%) SYRINGE 5ML ONE (10:55)
[2023-01-24] MEDS ORDERED: FENTANYL CITRATE PF 50 MCG/1 ML 2ML VIAL ONE (10:56)
[2023-01-24] MEDS ORDERED: GLYCOPYRROLATE 1 MG/5 ML SYRINGE ONE (10:56)
[2023-01-24] MEDS ORDERED: ONDANSETRON 4MG INJ ONE (10:56)
[2023-01-24] MEDS ORDERED: NEOSTIGMINE 5MG/5ML SYR IV ONE (10:56)
[2023-01-24] MEDS ORDERED: PROPOFOL 10 MG/ML 20ML VIAL IV ONE ×2 (10:56→11:46)
[2023-01-24] MEDS ORDERED: ROCURONIUM 10MG/1ML SYR 10 MG/ML ML ONE (10:56)
[2023-01-24] MEDS ORDERED: ATROPINE 1MG SYG IVP ONE (11:20)
[2023-01-24] MEDS ORDERED: BUPIVACAINE/PF 0.25% 30ML VIAL IJ ONE (11:54)
[2023-01-24] MEDS ORDERED: PHENAZOPYRIDINE HCL 200 MG TABLET ONE (13:53)
== END 2023-01-24 14:35 | disposition home or self-care (01) ==
LOC: DAH 07:32
PROVIDERS: ATTEND Urology
DX: N40.1 Benign prostatic hyperplasia with lower urinary tract symptoms (principal); Z20.822 Contact with and (suspected) exposure to COVID-19; R33.8 Other retention of urine; R39.14 Feeling of incomplete bladder emptying; N47.2 Paraphimosis; N30.20 Other chronic cystitis without hematuria; N32.3 Diverticulum of bladder; N35.919 Unspecified urethral stricture, male, unspecified site; Q90.9 Down syndrome, unspecified; I10 Essential (primary) hypertension; Z79.899 Other long term (current) drug therapy; Z98.890 Other specified postprocedural states
CPT/HCPCS: 85025; 87426; 36415; 52648; A4663; J7120 ×2; A4354; A4340; J3010; J0330; J3490 ×2; J1100; J2710; J2001; J0461; J2704 ×2; J2405; J2185; A4358; A4215; A4223; A4222; A4221

== ENCOUNTER 2023-01-25 10:43 | Emergency (ER) | payer MEDICARE ==
[~2023-01-25] VITALS: Ht 157.5 cm; Wt 63.5 kg
[~2023-01-25 10:43] MED LIST changes: -AEC81 PO; -CICL34.62 TP; -KETO15CR2 TP; -PROP60CA PO; -TRIA15CR48 TP
[2023-01-25] MEDS ORDERED: MORPHINE 2 MG SYG IVP ONE (15:30)
[2023-01-25] MEDS ORDERED: METOCLOPRAMIDE 10 MG/2 ML VIAL IVP ONE (15:30)
[2023-01-25] MEDS ORDERED: CEFTRIAXONE 2GM VIAL IVPB ONE (15:30)
[2023-01-25 18:00] LABS: BASOPHILS % (AUTO) 0.6 % (0.0-5.0); EOSINOPHILS % (AUTO) 1.7 % (0.0-8.0); HEMATOCRIT 37.4 % (42-54); LYMPHOCYTES % (AUTO) 22.6 % (21.0-51.0); MEAN CORPUSCULAR HGB CONC 32.6 g/dL (32.0-36.0); MEAN CORPUSCULAR VOLUME 95.2 fL (79-99); MONOCYTES % (AUTO) 6.2 % (3.0-13.0); NEUTROPHILS % (AUTO) 68.6 % (40.0-77.0); PLATELET COUNT (AUTO) 330 K/uL (130-400); RED BLOOD CELL COUNT(AUTO) 3.93 MIL/uL (4.50-6.20); RED CELL DISTRIBUTION WIDTH 14.1 % (11.0-15.5); WHITE BLOOD COUNT (AUTO) 9.6 K/uL (4.8-10.8)
[2023-01-25 18:02] VITALS: BP 122/68; PULSE 54; RESP 18; O2SAT 98
[2023-01-25 18:15] LABS: ALBUMIN 2.6 g/dL (3.5-5.0)
== END 2023-01-25 19:02 | disposition short-term general hospital (02) ==
LOC: EDH 10:43
DX: S02.85XA Fracture of orbit, unspecified, initial encounter for closed fracture (principal); Z79.82 Long term (current) use of aspirin; Z79.899 Other long term (current) drug therapy; W18.39XA Other fall on same level, initial encounter; Y93.89 Activity, other specified; Y92.89 Other specified places as the place of occurrence of the external cause; Y99.8 Other external cause status
CPT/HCPCS: 99285; 70450; 96365; 71045; 80053; 85025; 36415; 74018; 72170; 72125; 70486; J0696

== ENCOUNTER 2023-02-13 07:58 | Inpatient (IN) | payer MEDICARE ==
[~2023-02-13] VITALS: Ht 152.4 cm; Wt 64.9 kg
[2023-02-13] MEDS ORDERED: 0.9%NACL 1000ML 1,000 ML IV ONE ×2 (09:00→15:00)
[2023-02-13 09:10] LABS: BASOPHILS # (AUTO) 0.07 K/uL (0.00-0.20); BASOPHILS % (AUTO) 0.6 % (0.0-5.0); EOSINOPHILS # (AUTO) 0.24 K/uL (0.00-0.70); EOSINOPHILS % (AUTO) 2.2 % (0.0-8.0); HEMATOCRIT 37.3 % (42-54); IMMATURE GRANULOCYTE ABSOLUTE 0.03 K/uL (0-1); LYMPHOCYTES # (AUTO) 1.4 K/uL (1.0-4.8); LYMPHOCYTES % (AUTO) 13.1 % (21.0-51.0); MEAN CORPUSCULAR HEMOGLOBIN 31.4 pg (27.0-33.0); MEAN CORPUSCULAR HGB CONC 33.2 g/dL (32.0-36.0); MEAN CORPUSCULAR VOLUME 94.4 fL (79-99); MONOCYTES % (AUTO) 8.8 % (3.0-13.0); NEUTROPHILS # (AUTO) 8.1 K/uL (1.8-7.7); PLATELET COUNT (AUTO) 266 K/uL (130-400); RED BLOOD CELL COUNT(AUTO) 3.95 MIL/uL (4.50-6.20); RED CELL DISTRIBUTION WIDTH 14.9 % (11.0-15.5); WHITE BLOOD COUNT (AUTO) 10.8 K/uL (4.8-10.8)
[2023-02-13 09:20] LABS: POTASSIUM 3.7 mmol/L (3.5-5.1)
[2023-02-13 12:29] LABS: APPEARANCE,URINE CLOUDY (CLEAR); BILIRUBIN,URINE NEGATIVE (NEGATIVE); COLOR,URINE ORANGE (YELLOW); GLUCOSE, URINE (UA) NEGATIVE (NEGATIVE); KETONES,URINE NEGATIVE (NEGATIVE); LEUKOCYTE ESTERASE ,URINE LARGE Leu/uL (NEGATIVE); NITRATE,URINE POSITIVE (NEGATIVE); OCCULT BLOOD,URINE LARGE (NEGATIVE); PROTEIN,URINE 30 mg/dL (NEGATIVE); UROBILINOGEN,URINE 0.2 mg/dL (0.2-1.0)
[2023-02-13 12:40] LABS: ADD UA MICROSCOPIC YES
[2023-02-13 12:50] LABS: BACTERIA,URINE Few /HPF (None Seen); RBC,URINE >100 /HPF (0-1); SQUAMOUS EPITHELIAL CELL,UR Rare /HPF (0-2); WBC,URINE >100 /HPF (0-1)
[2023-02-13] MEDS ORDERED: CEFTRIAXONE 2GM VIAL IVPB ONE (14:00)
[2023-02-13 14:43] LABS: INR 0.96 (0.85-1.15); PROTHROMBIN TIME 11.2 SEC (9.6-11.6)
[2023-02-13 14:44] LABS: PARTIAL THROMBOPLASTIN TIME 24.8 SEC (26.3-35.5)
[2023-02-13] MEDS ORDERED: NIZO215C TP (14:54)
[2023-02-13] MEDS ORDERED: ASPI-1197 PO (14:54)
[2023-02-13 16:00] VITALS: BP 121/63; PULSE 46; RESP 18
[2023-02-13 17:19] LABS: HEMOGLOBIN A1C 5.8 % (4.0-6.0)
[2023-02-13 18:07] VITALS: O2SAT 98
[2023-02-13 20:00] VITALS: BP 136/55; PULSE 54; RESP 18; O2SAT 94
[2023-02-13] MEDS: DOCUSATE SODIUM 100 MG CAP PO SCH (20:03)
[2023-02-13] MEDS: KETOCONAZOLE 15 GM CREAM.GM. TP SCH (20:06)
[2023-02-13] MEDS: FUROSEMIDE 20 MG TABLET PO SCH (20:06)
[2023-02-14] VITALS (8 sets, daily range): BP systolic 113–140; BP diastolic 53–88; PULSE 53–61; RESP 16–22; O2SAT 93–100
[2023-02-14 07:18] LABS: BASOPHILS # (AUTO) 0.04 K/uL (0.00-0.20); BASOPHILS % (AUTO) 0.5 % (0.0-5.0); EOSINOPHILS # (AUTO) 0.17 K/uL (0.00-0.70); EOSINOPHILS % (AUTO) 2.1 % (0.0-8.0); HEMATOCRIT 35.1 % (42-54); IMMATURE GRANULOCYTE ABSOLUTE 0.03 K/uL (0-1); LYMPHOCYTES # (AUTO) 1.2 K/uL (1.0-4.8); LYMPHOCYTES % (AUTO) 15.2 % (21.0-51.0); MEAN CORPUSCULAR HEMOGLOBIN 31.7 pg (27.0-33.0); MEAN CORPUSCULAR VOLUME 95.9 fL (79-99); MONOCYTES # (AUTO) 0.7 K/uL (0.1-1.0); MONOCYTES % (AUTO) 8.2 % (3.0-13.0); NEUTROPHILS % (AUTO) 73.6 % (40.0-77.0); PLATELET COUNT (AUTO) 205 K/uL (130-400); RED BLOOD CELL COUNT(AUTO) 3.66 MIL/uL (4.50-6.20); RED CELL DISTRIBUTION WIDTH 14.6 % (11.0-15.5); WHITE BLOOD COUNT (AUTO) 8.1 K/uL (4.8-10.8)
[2023-02-14 07:35] LABS: CREATININE 0.9 mg/dL (0.5-1.5); POTASSIUM 3.4 mmol/L (3.5-5.1)
[2023-02-14] MEDS ORDERED: IOHEXOL-350 75 ML VIAL IV ONE (08:08)
[2023-02-14] MEDS: AMMONIUM LACTATE 226GM LOTION TP SCH (09:00)
[2023-02-14] MEDS: Pravastatin Sodium 20 MG PO SCH (09:00)
[2023-02-14] MEDS: KETOCONAZOLE 15 GM CREAM.GM. TP SCH ×2 (09:00→21:00)
[2023-02-14] MEDS: FUROSEMIDE 20 MG TABLET PO SCH ×2 (09:52→20:40)
[2023-02-14] MEDS: POLYETHYLENE GLYCOL 3350 17 GM POWD.PACK PO SCH (09:52)
[2023-02-14] MEDS: FLUOXETINE HCL 10 MG CAPSULE PO SCH (09:52)
[2023-02-14] MEDS: FINASTERIDE 5 MG TABLET PO SCH (09:52)
[2023-02-14] MEDS: CEFTRIAXONE 2GM VIAL IVPB SCH (09:52)
[2023-02-14] MEDS: TAMSULOSIN HCL 0.4 MG CAP.ER.24H PO SCH (09:52)
[2023-02-14] MEDS: DOCUSATE SODIUM 100 MG CAP PO SCH ×2 (09:52→20:40)
[2023-02-14] MEDS: FLUDROCORTISONE ACETATE 0.1 MG TABLET PO SCH (09:52)
[2023-02-14] MEDS ORDERED: POTASSIUM CHLORIDE 10% ELIXIR 20 MEQ/15 ML UDCUP PO PRN (14:00)
[2023-02-14] MEDS ORDERED: KCL 20 MEQ ERTAB PO PRN (14:00)
[2023-02-14] MEDS ORDERED: POTASSIUM CHLORIDE 20MEQ/100ML 100 ML IV PRN (14:00)
[2023-02-14] MEDS ORDERED: MAGNESIUM 2GM PREMIX 50ML 50 ML IV PRN (14:00)
[2023-02-14] MEDS: FAMOTIDINE 20MG TAB PO SCH (20:40)
[2023-02-15] VITALS: BP 105/46; PULSE 60; RESP 18
[2023-02-15 03:52] VITALS: BP 133/62; PULSE 72; RESP 16
[2023-02-15 05:06] LABS: BASOPHILS # (AUTO) 0.05 K/uL (0.00-0.20); BASOPHILS % (AUTO) 0.7 % (0.0-5.0); EOSINOPHILS # (AUTO) 0.11 K/uL (0.00-0.70); EOSINOPHILS % (AUTO) 1.5 % (0.0-8.0); IMMATURE GRANULOCYTE ABSOLUTE 0.02 K/uL (0-1); LYMPHOCYTES # (AUTO) 2.3 K/uL (1.0-4.8); LYMPHOCYTES % (AUTO) 31.1 % (21.0-51.0); MEAN CORPUSCULAR HGB CONC 32.4 g/dL (32.0-36.0); MEAN CORPUSCULAR VOLUME 95.7 fL (79-99); MONOCYTES # (AUTO) 0.8 K/uL (0.1-1.0); MONOCYTES % (AUTO) 10.3 % (3.0-13.0); NEUTROPHILS # (AUTO) 4.1 K/uL (1.8-7.7); NEUTROPHILS % (AUTO) 56.1 % (40.0-77.0); PLATELET COUNT (AUTO) 214 K/uL (130-400); RED BLOOD CELL COUNT(AUTO) 3.45 MIL/uL (4.50-6.20); RED CELL DISTRIBUTION WIDTH 14.8 % (11.0-15.5); WHITE BLOOD COUNT (AUTO) 7.3 K/uL (4.8-10.8)
[2023-02-15 05:19] LABS: ALBUMIN 2.3 g/dL (3.5-5.0); BILIRUBIN,TOTAL 0.2 mg/dL (0.2-1.0); CREATININE 1.2 mg/dL (0.5-1.5); POTASSIUM 3.8 mmol/L (3.5-5.1); TOTAL PROTEIN, SERUM 6.2 g/dL (6.0-8.3)
[2023-02-15 08:00] VITALS: BP 125/63; PULSE 61; RESP 16
[2023-02-15] MEDS: Pravastatin Sodium 20 MG PO SCH (09:00)
[2023-02-15] MEDS: TAMSULOSIN HCL 0.4 MG CAP.ER.24H PO SCH (10:50)
[2023-02-15] MEDS: CEFTRIAXONE 2GM VIAL IVPB SCH (10:50)
[2023-02-15] MEDS: POLYETHYLENE GLYCOL 3350 17 GM POWD.PACK PO SCH (10:50)
[2023-02-15] MEDS: FLUDROCORTISONE ACETATE 0.1 MG TABLET PO SCH (10:51)
[2023-02-15] MEDS: FAMOTIDINE 20MG TAB PO SCH ×2 (10:51→21:04)
[2023-02-15] MEDS: FINASTERIDE 5 MG TABLET PO SCH (10:51)
[2023-02-15] MEDS: FUROSEMIDE 20 MG TABLET PO SCH ×2 (10:51→21:04)
[2023-02-15] MEDS: DOCUSATE SODIUM 100 MG CAP PO SCH ×2 (10:51→21:05)
[2023-02-15] MEDS: FLUOXETINE HCL 10 MG CAPSULE PO SCH (10:51)
[2023-02-15 12:00] VITALS: BP 155/82; PULSE 80; RESP 16
[2023-02-15] MEDS: KETOCONAZOLE 15 GM CREAM.GM. TP SCH ×2 (13:18→21:05)
[2023-02-15] MEDS: AMMONIUM LACTATE 226GM LOTION TP SCH (13:19)
[2023-02-15 16:00] VITALS: BP 135/54; PULSE 60; RESP 16
[2023-02-15 20:00] VITALS: BP 113/42; PULSE 60; RESP 20; O2SAT 93
[2023-02-16] VITALS: BP 140/71; PULSE 58; RESP 20
[2023-02-16 04:00] VITALS: BP 113/66; PULSE 56; RESP 20
[2023-02-16 08:00] VITALS: BP 138/69; PULSE 55; RESP 18
[2023-02-16 08:30] VITALS: O2SAT 98
[2023-02-16] MEDS: Pravastatin Sodium 20 MG PO SCH (09:00)
[2023-02-16] MEDS ORDERED: LEVOFLOXACIN 500 MG TABLET PO SCH (09:00)
[2023-02-16] MEDS: POLYETHYLENE GLYCOL 3350 17 GM POWD.PACK PO SCH (10:07)
[2023-02-16] MEDS: TAMSULOSIN HCL 0.4 MG CAP.ER.24H PO SCH (10:07)
[2023-02-16] MEDS: DOCUSATE SODIUM 100 MG CAP PO SCH (10:08)
[2023-02-16] MEDS: FINASTERIDE 5 MG TABLET PO SCH (10:09)
[2023-02-16] MEDS: FUROSEMIDE 20 MG TABLET PO SCH (10:09)
[2023-02-16] MEDS: FAMOTIDINE 20MG TAB PO SCH (10:09)
[2023-02-16] MEDS: FLUDROCORTISONE ACETATE 0.1 MG TABLET PO SCH (10:09)
[2023-02-16] MEDS: KETOCONAZOLE 15 GM CREAM.GM. TP SCH (10:09)
[2023-02-16] MEDS: AMMONIUM LACTATE 226GM LOTION TP SCH (10:10)
[2023-02-16] MEDS: FLUOXETINE HCL 10 MG CAPSULE PO SCH (10:11)
[2023-02-16] MEDS ORDERED: LEVO-70 PO (11:51)
[2023-02-16 12:00] VITALS: BP 107/62; PULSE 57; RESP 17
[2023-02-16 16:00] VITALS: BP 137/71; PULSE 61; RESP 19
[2023-02-17] MEDS ORDERED: LEVOFLOXACIN 500 MG TABLET PO SCH (09:00)
== END 2023-02-16 18:05 | disposition home or self-care (01) | DRG 690 ==
LOC: EDH 07:58 → EDHIP 14:37 → 3AH 17:10 → 3CH 02-14 06:23
PROVIDERS: ADMIT Internal Medicine; ATTEND Internal Medicine
DX: N30.81 Other cystitis with hematuria (principal); R47.01 Aphasia; E78.00 Pure hypercholesterolemia, unspecified; I10 Essential (primary) hypertension; N40.0 Benign prostatic hyperplasia without lower urinary tract symptoms
CPT/HCPCS: 36415; 74176; 74178; 76856; 80048; 80053; 81001; 83036; 84153; 85025; 85610; 85730; 86850; 86900; 86901; 87077; 87088; 87186; G0378; J0696; J7030; Q9967

== ENCOUNTER 2023-10-24 10:17 | Inpatient (IN) | payer MEDICARE ==
[~2023-10-24] VITALS: Ht 147.3 cm; Wt 57.2 kg
[~2023-10-24 10:17] MED LIST changes: +AMOX-426 PO; +ASPI-1197 PO; +ATOR10 PO; +CICL6.6S22 TP; -DOCU-116 PO; -FINA5TAB41 PO; -FLUD0.1T2 PO; -FURO20TA4 PO; +FURO40TA5 PO; -LACHLOT TP; -LORA10TA7 PO; +MELA1TAB16 PO; +NIZO215C TP; +NYSTPW TP; -POLY17PO52 PO; -POTA-364 PO; -PRAV20TA4 PO; -TAMS-1 PO; +TRIAM15CRM TP; -VITAMIN D3 PO; -nystatin TP
[2023-10-24 11:25] LABS: APPEARANCE,URINE CLOUDY (CLEAR); BILIRUBIN,URINE NEGATIVE (NEGATIVE); COLOR,URINE LIGHT-YELLOW (YELLOW); GLUCOSE, URINE (UA) NEGATIVE (NEGATIVE); KETONES,URINE NEGATIVE (NEGATIVE); LEUKOCYTE ESTERASE ,URINE 500 Leu/uL (NEGATIVE); NITRATE,URINE 2+ (NEGATIVE); OCCULT BLOOD,URINE MODERATE (NEGATIVE); PH,URINE 6.5 (5.0-8.0); PROTEIN,URINE NEGATIVE (NEGATIVE); UROBILINOGEN,URINE 0.2 mg/dL (0.2-1.0)
[2023-10-24 11:28] LABS: ADD UA MICROSCOPIC YES
[2023-10-24 11:39] LABS: BACTERIA,URINE MOD /HPF (None Seen); MUCUS,URINE RARE LPF (None Seen); RBC,URINE 26-50 /HPF (0-1); SQUAMOUS EPITHELIAL CELL,UR MOD /HPF (0-2); WBC CLUMP FEW /HPF (0-1); WBC,URINE 51-100 /HPF (0-1); YEAST,URINE BUDDING FEW /HPF (None Seen)
[2023-10-24 13:39] LABS: BASOPHILS # (AUTO) 0.05 K/uL (0.00-0.20); BASOPHILS % (AUTO) 0.6 % (0.0-5.0); EOSINOPHILS # (AUTO) 0.07 K/uL (0.00-0.70); EOSINOPHILS % (AUTO) 0.8 % (0.0-8.0); HEMATOCRIT 43.1 % (42-54); IMMATURE GRANULOCYTE ABSOLUTE 0.03 K/uL (0-1); LYMPHOCYTES # (AUTO) 2.5 K/uL (1.0-4.8); LYMPHOCYTES % (AUTO) 30.4 % (21.0-51.0); MEAN CORPUSCULAR HGB CONC 32.9 g/dL (32.0-36.0); MEAN CORPUSCULAR VOLUME 97.1 fL (79-99); MONOCYTES # (AUTO) 0.4 K/uL (0.1-1.0); MONOCYTES % (AUTO) 4.7 % (3.0-13.0); NEUTROPHILS # (AUTO) 5.2 K/uL (1.8-7.7); NEUTROPHILS % (AUTO) 63.1 % (40.0-77.0); PLATELET COUNT (AUTO) 212 K/uL (130-400); RED BLOOD CELL COUNT(AUTO) 4.44 MIL/uL (4.50-6.20); RED CELL DISTRIBUTION WIDTH 14.6 % (11.0-15.5); WHITE BLOOD COUNT (AUTO) 8.3 K/uL (4.8-10.8)
[2023-10-24] MEDS: ZOSYN 3.375GM +NS 50ML IVPB ONE (13:40)
[2023-10-24 14:14] LABS: POTASSIUM 4.9 mmol/L (3.5-5.1)
[2023-10-24 14:19] LABS: ALBUMIN 3.2 g/dL (3.5-5.0); BILIRUBIN,TOTAL 0.4 mg/dL (0.2-1.0); TOTAL PROTEIN, SERUM 7.8 g/dL (6.0-8.3)
[2023-10-24] MEDS: LACTATED RINGERS 1000ML 1,000 ML IV SCH (15:20)
[2023-10-24] MEDS ORDERED: 0.9%NACL 50ML IV SCH (20:00)
[2023-10-24 21:30] LABS: CREATININE 1.1 mg/dL (0.5-1.3); POTASSIUM 4.2 mmol/L (3.5-5.1)
[2023-10-24] MEDS: FAMOTIDINE 20MG VIAL IV SCH (21:41)
[2023-10-24] MEDS: ZOSYN 3.375GM +NS 50ML IVPB SCH (21:41)
[2023-10-25] VITALS (8 sets, daily range): BP systolic 116–166; BP diastolic 58–79; PULSE 50–66; RESP 16–20; O2SAT 93–98
[2023-10-25] MEDS: ENOXAPARIN SODIUM 30 MG/0.3 ML SQ SCH (09:25)
[2023-10-25 10:45] LABS: BASOPHILS # (AUTO) 0.06 K/uL (0.00-0.20); BASOPHILS % (AUTO) 0.9 % (0.0-5.0); EOSINOPHILS # (AUTO) 0.07 K/uL (0.00-0.70); EOSINOPHILS % (AUTO) 1.1 % (0.0-8.0); HEMATOCRIT 35.1 % (42-54); IMMATURE GRANULOCYTE ABSOLUTE 0.01 K/uL (0-1); LYMPHOCYTES # (AUTO) 1.7 K/uL (1.0-4.8); LYMPHOCYTES % (AUTO) 25.3 % (21.0-51.0); MEAN CORPUSCULAR VOLUME 96.7 fL (79-99); MONOCYTES # (AUTO) 0.4 K/uL (0.1-1.0); MONOCYTES % (AUTO) 5.7 % (3.0-13.0); NEUTROPHILS # (AUTO) 4.4 K/uL (1.8-7.7); NEUTROPHILS % (AUTO) 66.8 % (40.0-77.0); PLATELET COUNT (AUTO) 186 K/uL (130-400); RED BLOOD CELL COUNT(AUTO) 3.63 MIL/uL (4.50-6.20); RED CELL DISTRIBUTION WIDTH 14.5 % (11.0-15.5); WHITE BLOOD COUNT (AUTO) 6.6 K/uL (4.8-10.8)
[2023-10-25 10:50] LABS: CREATININE 0.9 mg/dL (0.5-1.3); POTASSIUM 4.4 mmol/L (3.5-5.1)
[2023-10-25] MEDS: CEFTRIAXONE 1G VIAL IVPB SCH (12:57)
[2023-10-26] VITALS (8 sets, daily range): BP systolic 113–169; BP diastolic 41–94; PULSE 52–62; RESP 16–18; O2SAT 98
[2023-10-26 05:57] LABS: HEMATOCRIT 40.3 % (42-54); MEAN CORPUSCULAR HEMOGLOBIN 32.4 pg (27.0-33.0); MEAN CORPUSCULAR HGB CONC 33.5 g/dL (32.0-36.0); MEAN CORPUSCULAR VOLUME 96.6 fL (79-99); RED BLOOD CELL COUNT(AUTO) 4.17 MIL/uL (4.50-6.20); RED CELL DISTRIBUTION WIDTH 14.2 % (11.0-15.5); WHITE BLOOD COUNT (AUTO) 6.2 K/uL (4.8-10.8)
[2023-10-26 06:23] LABS: ALBUMIN 2.6 g/dL (3.5-5.0); BILIRUBIN,TOTAL 0.2 mg/dL (0.2-1.0); MAGNESIUM 1.8 mg/dL (1.80-2.40); POTASSIUM 4.1 mmol/L (3.5-5.1); TOTAL PROTEIN, SERUM 6.6 g/dL (6.0-8.3)
[2023-10-26] MEDS: ZOSYN 3.375GM +NS 50ML IV SCH (12:07)
[2023-10-26 13:48] LABS: INR 1.08 (0.85-1.15); PROTHROMBIN TIME 12.7 SEC (9.6-11.6)
[2023-10-26] MEDS: ACETAMINOPHEN 500 MG TABLET PO PRN (17:13)
[2023-10-27] VITALS (9 sets, daily range): BP systolic 110–162; BP diastolic 47–89; PULSE 50–115; RESP 16–20; O2SAT 93–98
[2023-10-27 05:46] LABS: HEMATOCRIT 35.7 % (42-54); MEAN CORPUSCULAR HEMOGLOBIN 32.2 pg (27.0-33.0); MEAN CORPUSCULAR HGB CONC 34.5 g/dL (32.0-36.0); MEAN CORPUSCULAR VOLUME 93.5 fL (79-99); RED BLOOD CELL COUNT(AUTO) 3.82 MIL/uL (4.50-6.20); RED CELL DISTRIBUTION WIDTH 14.1 % (11.0-15.5)
[2023-10-27 06:32] LABS: ALBUMIN 2.5 g/dL (3.5-5.0); BILIRUBIN,TOTAL 0.3 mg/dL (0.2-1.0); CREATININE 1.2 mg/dL (0.5-1.3); MAGNESIUM 1.8 mg/dL (1.80-2.40); POTASSIUM 3.4 mmol/L (3.5-5.1); TOTAL PROTEIN, SERUM 6.2 g/dL (6.0-8.3)
[2023-10-28 03:31] VITALS: BP 156/75; PULSE 75; RESP 16
[2023-10-28 05:35] LABS: BASOPHILS # (AUTO) 0.04 K/uL (0.00-0.20); BASOPHILS % (AUTO) 0.6 % (0.0-5.0); HEMATOCRIT 39.8 % (42-54); IMMATURE GRANULOCYTE ABSOLUTE 0.03 K/uL (0-1); LYMPHOCYTES # (AUTO) 2.7 K/uL (1.0-4.8); LYMPHOCYTES % (AUTO) 40.8 % (21.0-51.0); MEAN CORPUSCULAR HEMOGLOBIN 31.4 pg (27.0-33.0); MEAN CORPUSCULAR HGB CONC 33.2 g/dL (32.0-36.0); MEAN CORPUSCULAR VOLUME 94.8 fL (79-99); MONOCYTES # (AUTO) 0.5 K/uL (0.1-1.0); MONOCYTES % (AUTO) 8.1 % (3.0-13.0); NEUTROPHILS # (AUTO) 3.1 K/uL (1.8-7.7); PLATELET COUNT (AUTO) 191 K/uL (130-400); RED CELL DISTRIBUTION WIDTH 14.2 % (11.0-15.5); WHITE BLOOD COUNT (AUTO) 6.6 K/uL (4.8-10.8)
[2023-10-28 05:49] LABS: MAGNESIUM 1.8 mg/dL (1.80-2.40); PHOSPHORUS 3.2 mg/dL (2.5-4.9); POTASSIUM 3.5 mmol/L (3.5-5.1)
[2023-10-28 08:00] VITALS: BP 156/96; PULSE 61; RESP 16
[2023-10-28 08:40] VITALS: O2SAT 92
[2023-10-28] MEDS: POLYETHYLENE GLYCOL 3350 17 GM POWD.PACK PO SCH (11:14)
[2023-10-28] MEDS: DOCUSATE SODIUM 100 MG CAP PO ONE (11:14)
[2023-10-28 12:00] VITALS: BP 132/65; PULSE 53; RESP 16
== END 2023-10-28 15:40 | DRG 690 ==
LOC: EDH 10:17 → EDHIP 10:18 → 3CH 10-25 00:10 → 3BH 10-27 18:29
PROVIDERS: ADMIT Internal Medicine; ATTEND Internal Medicine
DX: N39.0 Urinary tract infection, site not specified (principal); Z16.24 Resistance to multiple antibiotics; Z16.12 Extended spectrum beta lactamase (ESBL) resistance; E87.0 Hyperosmolality and hypernatremia; E86.0 Dehydration; E86.1 Hypovolemia; N40.0 Benign prostatic hyperplasia without lower urinary tract symptoms; B96.20 Unspecified Escherichia coli [E. coli] as the cause of diseases classified elsewhere; E78.00 Pure hypercholesterolemia, unspecified; F79 Unspecified intellectual disabilities; N32.3 Diverticulum of bladder; I10 Essential (primary) hypertension; Z74.01 Bed confinement status; Q90.9 Down syndrome, unspecified
CPT/HCPCS: 36415; 80048; 80053; 81001; 83605; 83735; 84100; 85025; 85027; 85610; 87040; 87077; 87088; 87186; C1894; G0378; J0696; J1650; J2543; J3490; J7120; C1750

== ENCOUNTER 2023-11-21 12:42 | Emergency (ER) | payer MEDICARE ==
[~2023-11-21] VITALS: Ht 137.2 cm; Wt 61.2 kg
[2023-11-21] MEDS: 0.9%NACL 1000ML 1,000 ML IV ONE (16:47)
[2023-11-21 16:55] LABS: BASOPHILS # (AUTO) 0.04 K/uL (0.00-0.20); BASOPHILS % (AUTO) 0.5 % (0.0-5.0); EOSINOPHILS # (AUTO) 0.09 K/uL (0.00-0.70); EOSINOPHILS % (AUTO) 1.1 % (0.0-8.0); HEMATOCRIT 42.5 % (42-54); IMMATURE GRANULOCYTE ABSOLUTE 0.04 K/uL (0-1); LYMPHOCYTES # (AUTO) 2.1 K/uL (1.0-4.8); LYMPHOCYTES % (AUTO) 26.3 % (21.0-51.0); MEAN CORPUSCULAR HEMOGLOBIN 31.7 pg (27.0-33.0); MEAN CORPUSCULAR HGB CONC 33.6 g/dL (32.0-36.0); MEAN CORPUSCULAR VOLUME 94.2 fL (79-99); MONOCYTES # (AUTO) 0.4 K/uL (0.1-1.0); NEUTROPHILS # (AUTO) 5.2 K/uL (1.8-7.7); NEUTROPHILS % (AUTO) 66.6 % (40.0-77.0); PLATELET COUNT (AUTO) 242 K/uL (130-400); RED BLOOD CELL COUNT(AUTO) 4.51 MIL/uL (4.50-6.20); RED CELL DISTRIBUTION WIDTH 14.4 % (11.0-15.5); WHITE BLOOD COUNT (AUTO) 7.8 K/uL (4.8-10.8)
[2023-11-21 17:09] LABS: ALBUMIN 3.3 g/dL (3.5-5.0); BILIRUBIN,TOTAL 0.5 mg/dL (0.2-1.0); TOTAL PROTEIN, SERUM 8.3 g/dL (6.0-8.3)
[2023-11-21 19:25] LABS: APPEARANCE,URINE CLOUDY (CLEAR); BILIRUBIN,URINE NEGATIVE (NEGATIVE); COLOR,URINE LIGHT-YELLOW (YELLOW); GLUCOSE, URINE (UA) NEGATIVE (NEGATIVE); KETONES,URINE NEGATIVE (NEGATIVE); LEUKOCYTE ESTERASE ,URINE 500 Leu/uL (NEGATIVE); NITRATE,URINE 2+ (NEGATIVE); OCCULT BLOOD,URINE NEGATIVE (NEGATIVE); PROTEIN,URINE NEGATIVE (NEGATIVE); UROBILINOGEN,URINE 0.2 mg/dL (0.2-1.0)
[2023-11-21 19:53] LABS: ADD UA MICROSCOPIC YES
[2023-11-21 19:56] LABS: BACTERIA,URINE MANY /HPF (None Seen); MUCUS,URINE RARE LPF (None Seen); SQUAMOUS EPITHELIAL CELL,UR RARE /HPF (0-2); UNCLASSIFIED CRYSTAL 1 /HPF (None Seen); WBC,URINE TNTC /HPF (0-1); YEAST,URINE BUDDING FEW /HPF (None Seen)
[2023-11-21] MEDS ORDERED: AMOX1TAB16 PO (20:07)
[2023-11-21] MEDS: AMOX/CLAV 875/125MG TAB PO ONE (20:12)
[2023-11-21 20:22] VITALS: BP 131/41; PULSE 49; RESP 16; O2SAT 97
== END 2023-11-21 20:24 | disposition home or self-care (01) ==
LOC: EDH 12:42
DX: N30.00 Acute cystitis without hematuria (principal); E87.1 Hypo-osmolality and hyponatremia; E86.0 Dehydration; Q90.9 Down syndrome, unspecified; I10 Essential (primary) hypertension; E78.00 Pure hypercholesterolemia, unspecified; Z98.890 Other specified postprocedural states
CPT/HCPCS: 99284; 96360; 84484; 80053; 83690; 85025; 87077; 87088; 87186; 81001; 36415; 93005; J7030

== ENCOUNTER → 2023-12-05 | Outpatient (CLI) | payer MEDICARE ==
[~2023-12-05] MED LIST changes: -AMOX-426 PO; +AMOX1TAB16 PO; -ASPI-1197 PO; -ATOR10 PO; -CICL6.6S22 TP; -FLUO10CA21 PO; -FURO40TA5 PO; -MELA1TAB16 PO; -NIZO215C TP; -NYSTPW TP; -TRIAM15CRM TP
== END | disposition home or self-care (01) ==
LOC: SHCH 09:46
PROVIDERS: ATTEND Internal Medicine Cardiovascular Disease
DX: I11.9 Hypertensive heart disease without heart failure (principal)
CPT/HCPCS: 93306

== ENCOUNTER 2024-04-24 17:48 | Emergency (ER) | payer MEDICARE ==
[~2024-04-24] VITALS: Ht 149.9 cm; Wt 68.0 kg
[2024-04-24 18:24] LABS: BASOPHILS # (AUTO) 0.04 K/uL (0.00-0.20); BASOPHILS % (AUTO) 0.5 % (0.0-5.0); EOSINOPHILS # (AUTO) 0.06 K/uL (0.00-0.70); EOSINOPHILS % (AUTO) 0.7 % (0.0-8.0); HEMATOCRIT 33.6 % (42-54); IMMATURE GRANULOCYTE ABSOLUTE 0.03 K/uL (0-1); LYMPHOCYTES # (AUTO) 1.7 K/uL (1.0-4.8); LYMPHOCYTES % (AUTO) 19.8 % (21.0-51.0); MEAN CORPUSCULAR HEMOGLOBIN 31.4 pg (27.0-33.0); MEAN CORPUSCULAR VOLUME 95.2 fL (79-99); MONOCYTES # (AUTO) 0.6 K/uL (0.1-1.0); MONOCYTES % (AUTO) 7.1 % (3.0-13.0); NEUTROPHILS % (AUTO) 71.5 % (40.0-77.0); PLATELET COUNT (AUTO) 303 K/uL (130-400); RED BLOOD CELL COUNT(AUTO) 3.53 MIL/uL (4.50-6.20); RED CELL DISTRIBUTION WIDTH 15.2 % (11.0-15.5); WHITE BLOOD COUNT (AUTO) 8.4 K/uL (4.8-10.8)
[2024-04-24 18:31] LABS: CREATININE 0.9 mg/dL (0.5-1.3)
[2024-04-24] MEDS ORDERED: SULF1TAB42 PO (21:14)
[2024-04-24] MEDS: cefTRIAXone 1G VIAL IM ONE (22:17)
[2024-04-24 22:29] VITALS: BP 107/48; PULSE 74; RESP 18; TEMP 98.2; O2SAT 98
[2024-04-29] MEDS ORDERED: PRAV20TA4 PO (16:24)
[2024-04-29] MEDS ORDERED: FURO20TA4 PO (16:24)
[2024-04-29] MEDS ORDERED: POLY17PO52 PO (16:24)
[2024-04-29] MEDS ORDERED: ASPI-1005 PO (16:24)
[2024-04-29] MEDS ORDERED: CHOL2000 PO (16:24)
[2024-04-29] MEDS ORDERED: FLUD0.1T2 PO (16:24)
[2024-04-29] MEDS ORDERED: TRIAM15CRM TP (16:24)
[2024-04-29] MEDS ORDERED: KETO15CR2 TP (16:24)
[2024-04-29] MEDS ORDERED: FLUO-341 PO (16:24)
[2024-04-29] MEDS ORDERED: MELA5CAP PO (16:24)
[2024-04-29] MEDS ORDERED: NYST15CR39 TP (16:24)
[2024-04-29] MEDS ORDERED: POTA-202 PO (16:24)
[2024-04-29] MEDS ORDERED: FINA5TAB41 PO (16:24)
[2024-04-29] MEDS ORDERED: TAMS-1 PO (16:24)
[2024-04-29] MEDS ORDERED: LORA10TA7 PO (16:24)
[2024-04-29] MEDS ORDERED: AMMO385C4 TP (16:24)
[2024-04-29] MEDS ORDERED: DOCU-116 PO (16:24)
== END 2024-04-24 22:40 | disposition home or self-care (01) ==
LOC: EDH 17:48
DX: N49.2 Inflammatory disorders of scrotum (principal); M79.89 Other specified soft tissue disorders; E78.00 Pure hypercholesterolemia, unspecified; I10 Essential (primary) hypertension; M79.662 Pain in left lower leg; Q90.9 Down syndrome, unspecified; Z79.899 Other long term (current) drug therapy; Z95.810 Presence of automatic (implantable) cardiac defibrillator
CPT/HCPCS: 99285; 80048; 85025; 36415; 93971; 76870; 96372; J0696

== ENCOUNTER 2024-07-06 19:59 | Emergency (ER) | payer MEDICARE ==
[~2024-07-06] VITALS: Ht 144.8 cm; Wt 54.4 kg
[~2024-07-06 19:59] MED LIST changes: +AMMO385C4 TP; -AMOX1TAB16 PO; +ASPI-1005 PO; +CHOL2000 PO; +DOCU-116 PO; +FINA5TAB41 PO; +FLUD0.1T2 PO; +FLUO-341 PO; +FURO20TA4 PO; +LORA10TA7 PO; +MELA5CAP PO; +NYST15CR39 TP; +POLY17PO52 PO; +POTA-202 PO; +PRAV20TA4 PO; +TAMS-1 PO
--- NOTE | 2024-07-06 20:43 | ERN ---
ED Note History of Present Illness Stated Complaint: BLOOD IN URINE Chief Complaint: Blood in Urine: Time Seen by MD: 20:15 Time Seen by Midlevel: 20:15 Dictation: 64-year-old male who presents to the emergency department accompanied by a caregiver from the custodial that he resides due to having had an episode of blood in the urine noted earlier today. There is no report of any fever vomiting or abdominal pain associated with this. As per the caregiver, he is unable to communicate effectively his complaints. There is no report of any hematemesis, hemoptysis, rectal bleeding, hemarthrosis or petechiae. Upon initial evaluation, the patient presents in no acute distress. Allergies: Coded Allergies: No Known Drug Allergies (Verified Allergy, Unknown, 08/23/16) Emergency Care STUDIO ENGINEER: None Home Meds Active Scripts Cephalexin Monohydrate (Keflex) 500 Mg Cap, 500 MG PO TID for 7 Days, #28 CAP Prov:PEDRO KHAN 07/06/24 Reported Medications Fludrocortisone Acetate (Fludrocortisone Acetate) 0.1 Mg Tablet, 1 TAB PO DAILY for 30 Days, #30 TAB 0 Refills 04/29/24 Aspirin (ASPIRIN 81MG CHEW TAB) 81 Mg Tab.chew, 1 TAB PO DAILY for 30 Days, #30 TAB 0 Refills 04/29/24 Cholecalciferol (Vitamin D3) (Vitamin D3) 50 Mcg (2000 Unit) Capsule, 1 CAP PO DAILY for 30 Days, #30 CAP 0 Refills 04/29/24 Docusate Sodium (Colace) 100 Mg Capsule, 1 CAP PO BID for 30 Days, #60 CAP 0 Refills 04/29/24 Nystatin (Nystatin) 100,000 Unit/Gram Cream.gm., 1 APPL TP TID for 5 Days, #15 GM 0 Refills apply to affected area(s) 04/29/24 Pravastatin Sodium (Pravastatin Sodium) 20 Mg Tablet, 1 TAB PO DAILY for 30 Days, #30 TAB 0 Refills 04/29/24 Tamsulosin HCl (Flomax) 0.4 Mg Cap.er.24h, 1 CAP PO DAILY for 30 Days, #30 CAP 0 Refills 04/29/24 Melatonin (Melatonin) 5 Mg Capsule, 1 CAP PO HS for sleep for 30 Days, #30 CAP 0 Refills 04/29/24 Fluoxetine HCl (Fluoxetine HCl) 10 Mg Capsule, 1 CAP PO DAILY for 30 Days, #30 CAP 0 Refills 04/29/24 Potassium Chloride (Potassium Chloride) 20 Meq Tab.er.prt, 1 TAB PO DAILY for 30 Days, #30 TAB 0 Refills 04/29/24 Furosemide (Furosemide) 20 Mg Tablet, 1 TAB PO DAILY for 30 Days, #30 TAB 0 Refills 04/29/24 Finasteride (Finasteride) 5 Mg Tablet, 1 TAB PO DAILY for 30 Days, #30 TAB 0 Re fills 04/29/24 Loratadine (Loratadine) 10 Mg Tablet, 1 TAB PO DAILY for allergy symptoms for 30 Days, #30 TAB 0 Refills 04/29/24 Ammonium Lactate (Ammonium Lactate) 12 % Cream..g., 1 APPL TP BID for 30 Days, #385 GM 0 Refills 04/29/24 Polyethylene Glycol 3350 (Polyethylene Glycol 3350) 17 Gram Powd.pack, 1 PACKET PO DAILY for constipation for 10 Days, #10 PACKET 0 Refills 04/29/24 Past Medical History Past Medical History: Other Additional Past Medical Hx: PT IS NONVERBAL, DOWN SYNDROME; HX OF RECURRENT UTI Surgical History: Other, None Surgical History Other: PROSTATE 01/24/2023 Social History: Negative, Lives in Assisted Living RN Note Reviewed/Agreed w/PFSH: Yes Review of System Dictation See HPI. Initial Vital Sign VS Vital Signs Date Time Temp Pulse Resp B/P (MAP) Pulse Ox O2 Delivery O2 Flow Rate FiO2 07/06/24 20:25 97.5 56 20 105/43 98 Room Air Physical Exam Dictation General: awake, alert, NAD Head/Face: Normocephalic, atraumatic Eyes: PERRL, EOMI ENT: Oral mucosa moist Neck: Trachea midline, supple Cardiovascular: RRR, no edema Respiratory: Symmetrical, non-labored Abdomen: Soft, non-tender, non-distended, no guarding. Skin: Warm, dry, good turgor, no rash MS/Extremity: Pulses equal, no cyanosis, neurovascular intact, FROM Neuro: Awake. No focal deficits Results (Laboratory/Radiology) Laboratory/Radiology Laboratory Tests Test 07/06/24 21:09 White Blood Count 8.7 K/uL (4.8-10.8) Red Blood Count 3.93 MIL/uL (4.50-6.20) L Hemoglobin 12.2 g/dL (14.0-18.0) L Hematocrit 36.7 % (42-54) L Mean Corpuscular Volume 93.4 fL (79-99) Mean Corpuscular Hemoglobin 31.0 pg (27.0-33.0) Mean Corpuscular Hemoglobin Concent 33.2 g/dL (32.0-36.0) Red Cell Distribution Width 15.1 % (11.0-15.5) Platelet Count 276 K/uL (130-400) Mean Platelet Volume 10.6 fL (7.5-10.5) H Immature Granulocyte % (Auto) 0.3 % (0-1) Neutrophils (%) (Auto) 67.4 % (40.0-77.0) Lymphocytes (%) (Auto) 22.5 % (21.0-51.0) Monocytes (%) (Auto) 8.8 % (3.0-13.0) Eosinophils (%) (Auto) 0.8 % (0.0-8.0) Basophils (%) (Auto) 0.2 % (0.0-5.0) Neutrophils # (Auto) 5.9 K/uL (1.8-7.7) Lymphocytes # (Auto) 2.0 K/uL (1.0-4.8) Monocytes # (Auto) 0.8 K/uL (0.1-1.0) Eosinophils # (Auto) 0.07 K/uL (0.00-0.70) Basophils # (Auto) 0.02 K/uL (0.00-0.20) Absolute Immature Granulocyte (auto 0.03 K/uL (0-1) Nucleated Red Blood Cells 0.0 % (0.0-0.19) Sodium Level 142 mmol/L (136-145) Potassium Level 3.9 mmol/L (3.5-5.1) Chloride Level 106 mmol/L (101-111) Carbon Dioxide Level 30 mmol/L (21-32) Blood Urea Nitrogen 38 mg/dL (7-18) H Creatinine 1.4 mg/dL (0.5-1.3) H Glomerular Filtration Rate Calc 56 mL/min (>90) Random Glucose 96 mg/dL (70-105) Total Calcium 9.2 mg/dL (8.5-10.1) Total Bilirubin 0.2 mg/dL (0.2-1.0) Aspartate Amino Transf (AST/SGOT) 23 U/L (10-37) Alanine Aminotransferase (ALT/SGPT) 13 U/L (12-78) Alkaline Phosphatase 123 U/L (50-136) Total Protein 7.1 g/dL (6.0-8.3) Albumin 2.5 g/dL (3.5-5.0) L Labs Reviewed?: Yes ED Course ED Course Orders Procedure Category Date Status Time Cbc With Differential LAB 07/06/24 Complete 20:38 Comprehensive LAB 07/06/24 Complete Metabolic Panel 20:38 Urinalysis Profile LAB 07/06/24 Logged 20:38 *Nursing CPOE 07/06/24 Transmitted Communication: 21:02 Vital Signs Date Time Temp Pulse Resp B/P (MAP) Pulse Ox O2 Delivery O2 Flow Rate FiO2 07/06/24 20:25 97.5 56 20 105/43 98 Room Air Medical Decision Making MDM MDM: Differential diagnosis: Acute UTI, acute cystitis, hematuria, acute urinary retention Rationale: Tests considered and ordered secondary to shared decision making include: Previous outside records reviewed: Old ER visits. Risk of complication and/or morbidity or mortality of patient management: None Medications-Per medication reconciliation Need for hospitalization: Patient does not meet criteria for hospitalization. Need for emergency major/minor surgery: No There are no social concerns with this patient. Prescription drug management Prescriptions will include symptomatic care Patient's prior external medical records from other ER visits were reviewed by me as indicated. Prior testing and results from previous visits were reviewed. Prior tests were taken into account with medical decision making and resource utilization, independent historian/historians were used to obtain complete medical history. I independently interpreted the test that were performed, results were reviewed by me and considered findings on radiology if ordered. Medical management and examination interpretation discussions were had by me with other qualified healthcare professionals as indicated for the patient's care. A bladder scan reveals no concern for him having an acute urinary retention but will be discharged home on antibiotic for acute UTI. DX & DISP Disposition: Discharge Departure Impression: Primary Impression: Acute UTI Additional Impression: Hematuria Condition: Stable Scripts Cephalexin Monohydrate (Keflex) 500 Mg Cap 500 MG PO TID for 7 Days, #28 CAP Prov: PEDRO KHAN 07/06/24 Referrals: ASHLY TAPIA (PCP) PEDRO HKAN Jul 06, 2024 20:43
--- NOTE | 2024-07-06 21:07 | NUR ---
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
[2024-07-06 21:17] LABS: BASOPHILS # (AUTO) 0.02 K/uL (0.00-0.20); BASOPHILS % (AUTO) 0.2 % (0.0-5.0); EOSINOPHILS # (AUTO) 0.07 K/uL (0.00-0.70); EOSINOPHILS % (AUTO) 0.8 % (0.0-8.0); HEMATOCRIT 36.7 % (42-54); IMMATURE GRANULOCYTE ABSOLUTE 0.03 K/uL (0-1); LYMPHOCYTES % (AUTO) 22.5 % (21.0-51.0); MEAN CORPUSCULAR HGB CONC 33.2 g/dL (32.0-36.0); MEAN CORPUSCULAR VOLUME 93.4 fL (79-99); MONOCYTES # (AUTO) 0.8 K/uL (0.1-1.0); MONOCYTES % (AUTO) 8.8 % (3.0-13.0); NEUTROPHILS # (AUTO) 5.9 K/uL (1.8-7.7); NEUTROPHILS % (AUTO) 67.4 % (40.0-77.0); PLATELET COUNT (AUTO) 276 K/uL (130-400); RED BLOOD CELL COUNT(AUTO) 3.93 MIL/uL (4.50-6.20); RED CELL DISTRIBUTION WIDTH 15.1 % (11.0-15.5); WHITE BLOOD COUNT (AUTO) 8.7 K/uL (4.8-10.8)
[2024-07-06 21:39] LABS: ALBUMIN 2.5 g/dL (3.5-5.0); BILIRUBIN,TOTAL 0.2 mg/dL (0.2-1.0); CREATININE 1.4 mg/dL (0.5-1.3); POTASSIUM 3.9 mmol/L (3.5-5.1); TOTAL PROTEIN, SERUM 7.1 g/dL (6.0-8.3)
[2024-07-06] MEDS ORDERED: CEPH500B PO (21:44)
[2024-07-06 22:15] VITALS: BP 105/51; PULSE 78; RESP 18; TEMP 97.7; O2SAT 98
== END 2024-07-06 22:17 | disposition home or self-care (01) ==
LOC: EDH 19:59
DX: N39.0 Urinary tract infection, site not specified (principal); R31.9 Hematuria, unspecified; Z79.82 Long term (current) use of aspirin; Z79.899 Other long term (current) drug therapy
CPT/HCPCS: 36415; 80053; 85025; 99284

== ENCOUNTER 2024-12-23 06:09 | Day surgery (SDC) | payer MEDICARE ==
[~2024-12-23] VITALS: Ht 149.9 cm; Wt 54.4 kg
[2024-12-23] VITALS (10 sets, daily range): BP systolic 92–124; BP diastolic 50–89; PULSE 59–73; RESP 12–18; TEMP 96.6–97.5
[~2024-12-23 06:09] MED LIST changes: +CICL6.6S22 TP; +KETO15CR2 TP; +MIDO5TAB4 PO; +MIRT-22 PO; +NYST15CR34 TP; -NYST15CR39 TP; +NYST15PO3 TP; -PRAV20TA4 PO; +PRAV20TA59 PO; -TAMS-1 PO; +TAMS-55 PO; +TRIA60LO11 TP
[2024-12-23] MEDS: 0.9%NACL 1000ML 1,000 ML IV ONE (07:24)
[2024-12-23] MEDS ORDERED: POLY17PO4 PO (07:47)
[2024-12-23] MEDS ORDERED: proPOFol 10 MG/ML 20ML VIAL IV ONE (08:19)
== END 2024-12-23 09:50 | disposition home or self-care (01) ==
LOC: DAH 06:09 → ENDO 06:09
PROVIDERS: ATTEND Internal Medicine Gastroenterology
DX: R13.10 Dysphagia, unspecified (principal); R63.4 Abnormal weight loss; K29.50 Unspecified chronic gastritis without bleeding; K29.80 Duodenitis without bleeding; K31.89 Other diseases of stomach and duodenum; K22.89 Other specified disease of esophagus; E78.00 Pure hypercholesterolemia, unspecified; K59.04 Chronic idiopathic constipation; I95.9 Hypotension, unspecified; F41.9 Anxiety disorder, unspecified; M19.90 Unspecified osteoarthritis, unspecified site; Z87.898 Personal history of other specified conditions; Z79.899 Other long term (current) drug therapy
CPT/HCPCS: 43239; J7030; J2704; A4620; A4215; A4223; A7002; A4222; A4221; A4663; A4606; J3490